=== PATIENT | male | born 1935 | race Caucasian/White ===

== ENCOUNTER → 2023-11-30 10:48 | Outpatient (REF) | payer MEDICARE, BC, SELFPAY ==
[2023-11-30 11:09] LABS: % Basophils 0.5 % (0-2); % Eosinophils 1.4 % (0-6); % Immature Granulocytes 0.3 % (0-0.5); % Lymphocytes 25.1 % (20.5-51.1); % Monocytes 8.4 % (1.7-9.3); % Neutrophils 64.3 % (42.2-75.2); Absolute Eosinophils 0.1 10^3/uL (0-0.7); Absolute Lymphocytes 1.6 10^3/uL (1.2-3.4); Absolute Monocytes 0.5 10^3/uL (0.1-0.6); Absolute Neutrophils 4.1 10^3/uL (1.4-6.5); Hematocrit 32.8 % (39.0-52.0); Mean Corp Hgb Conc. 33.5 g/dL (33.0-37.0); Mean Corpuscular Hgb 30.7 pg (27.0-31.0); Mean Corpuscular Volume 91.6 fL (80.0-94.0); Mean Platelet Volume 8.5 fL (7.4-10.4); Nucleated Red Blood Cells % 0 % (-); Platelet Count 252 10^3/uL (130-400); Red Blood Cell Count 3.58 10^6/uL (4.70-6.10); Red Cell Dist. Width 14.7 % (11.5-14.5); White Blood Cell Count 6.3 10^3/uL (4.8-10.8)
== END ==
LOC: OLABPV 10:48
PROVIDERS: ATTENDING PHYSICIAN Internal Medicine
DX: E78.2 Mixed hyperlipidemia (principal); Z79.899 Other long term (current) drug therapy
CPT/HCPCS: 36415; 85025

== ENCOUNTER → 2023-12-30 11:37 | Outpatient (REF) | payer MEDICARE, BC, SELFPAY ==
[2023-12-30 12:36] LABS: % Basophils 0.3 % (0-2); % Eosinophils 1.5 % (0-6); % Immature Granulocytes 0.2 % (0-0.5); % Monocytes 7.7 % (1.7-9.3); % Neutrophils 70.3 % (42.2-75.2); Absolute Eosinophils 0.1 10^3/uL (0-0.7); Absolute Lymphocytes 1.2 10^3/uL (1.2-3.4); Absolute Monocytes 0.5 10^3/uL (0.1-0.6); Absolute Neutrophils 4.3 10^3/uL (1.4-6.5); Hematocrit 31.4 % (39.0-52.0); Hemoglobin 10.6 g/dL (13.0-18.0); Mean Corp Hgb Conc. 33.8 g/dL (33.0-37.0); Mean Corpuscular Hgb 31.2 pg (27.0-31.0); Mean Corpuscular Volume 92.4 fL (80.0-94.0); Mean Platelet Volume 8.8 fL (7.4-10.4); Nucleated Red Blood Cells % 0 % (-); Platelet Count 239 10^3/uL (130-400); Red Cell Dist. Width 13.8 % (11.5-14.5); White Blood Cell Count 6.1 10^3/uL (4.8-10.8)
[2023-12-30 12:58] LABS: ALT (SGPT) 21 U/L (0-50); AST (SGOT) 31 U/L (17-59); Albumin 3.6 g/dl (3.5-5.0); Alkaline Phosphatase 74 U/L (38-126); Blood Urea Nitrogen 20 mg/dl (9-20); Calcium 8.9 mg/dl (8.4-10.2); Carbon Dioxide 27 mmol/L (22-30); Chloride 102 mmol/L (98-107); Glucose 101 mg/dl (70-99); Potassium 3.5 mmol/L (3.5-5.1); Sodium 133 mmol/L (135-145); Total Bilirubin 0.7 mg/dl (0.2-1.3); Total CK 90 U/L (55-170); Total Protein 6.3 g/dl (6.3-8.2); eGFR > 60.00
[2023-12-30 13:21] LABS: TSH Reflex To Free T4 2.44 uIU/ml (0.47-4.68)
[2023-12-30 13:39] LABS: CKMB 2.3 ng/ml (0.0-2.4)
[2023-12-30 13:50] LABS: Erythrocyte Sed Rate 44 mm/hour (0-20)
[2024-01-02 16:17] LABS: Lyme Antibody Screen, EIA Negative (Negative); Rheumatoid Agglutinin Less Than 10 IU (<10 IU)
== END ==
LOC: OLABPV 11:37
PROVIDERS: ATTENDING PHYSICIAN Internal Medicine
DX: M79.10 Myalgia, unspecified site (principal); R25.2 Cramp and spasm; E55.9 Vitamin D deficiency, unspecified
CPT/HCPCS: 36415; 80053; 82550; 82553; 84443; 85025; 85652; 86430; 86618

== ENCOUNTER → 2024-01-05 10:06 | Outpatient (REF) | payer MEDICARE, BC, SELFPAY ==
--- NOTE | 2024-01-05 11:38 | CARDSERVLU ---
Echocardiogram with Lumason completed after protocol screening completed. Allergies verified.
Patent IV site: _Left forearm 22 G PC____
IV site flushed with 0.9% NaCl pre and post administration.
Diluted bolus method utilized to enhance visualization of ventricular bradley.
Total volume given: ___3_ mL
Patient tolerated all procedures well without complications.
Heplock D/C ed at 1128, site clear, no redness, no edema. Pressure held for few minutes as pt on Eliquis, no bleeding. 2x2 applied and taped. Pt offers no complaints.
== END ==
LOC: RCS 10:06
PROVIDERS: ATTENDING PHYSICIAN Internal Medicine Cardiovascular Disease; FAMILY PHYSICIAN Internal Medicine
DX: I48.21 Permanent atrial fibrillation (principal); M79.10 Myalgia, unspecified site; R25.2 Cramp and spasm; E55.9 Vitamin D deficiency, unspecified
CPT/HCPCS: 83735; 93306; Q9950

== ENCOUNTER → 2024-01-18 11:44 | Outpatient (REF) | payer MEDICARE, BC, SELFPAY ==
[2024-01-18 12:57] LABS: % Basophils 0.5 % (0-2); % Eosinophils 2.1 % (0-6); % Immature Granulocytes 0.5 % (0-0.5); % Lymphocytes 21.8 % (20.5-51.1); % Monocytes 9.3 % (1.7-9.3); % Neutrophils 65.8 % (42.2-75.2); Absolute Eosinophils 0.2 10^3/uL (0-0.7); Absolute Lymphocytes 1.9 10^3/uL (1.2-3.4); Absolute Monocytes 0.8 10^3/uL (0.1-0.6); Absolute Neutrophils 5.8 10^3/uL (1.4-6.5); Hematocrit 33.5 % (39.0-52.0); Hemoglobin 11.1 g/dL (13.0-18.0); Mean Corp Hgb Conc. 33.1 g/dL (33.0-37.0); Mean Corpuscular Hgb 30.7 pg (27.0-31.0); Mean Corpuscular Volume 92.5 fL (80.0-94.0); Mean Platelet Volume 8.6 fL (7.4-10.4); Nucleated Red Blood Cells % 0 % (-); Platelet Count 318 10^3/uL (130-400); Red Blood Cell Count 3.62 10^6/uL (4.70-6.10); Red Cell Dist. Width 14.6 % (11.5-14.5); White Blood Cell Count 8.8 10^3/uL (4.8-10.8)
[2024-01-18 13:28] LABS: Erythrocyte Sed Rate 38 mm/hour (0-20)
[2024-01-18 13:45] LABS: ALT (SGPT) 30 U/L (0-50); AST (SGOT) 30 U/L (17-59); Albumin 3.7 g/dl (3.5-5.0); Alkaline Phosphatase 79 U/L (38-126); Blood Urea Nitrogen 29 mg/dl (9-20); Calcium 9.3 mg/dl (8.4-10.2); Carbon Dioxide 27 mmol/L (22-30); Chloride 98 mmol/L (98-107); Glucose 99 mg/dl (70-99); Potassium 4.2 mmol/L (3.5-5.1); Sodium 136 mmol/L (135-145); Total Protein 6.4 g/dl (6.3-8.2); eGFR > 60.00
[2024-01-20 11:13] LABS: CRP, Highly Sensitive 11.56 mg/L
[2024-01-21 03:29] LABS: ANA, IgG Reflex to HEp-2 Detected (None Detected)
[2024-01-23 08:16] LABS: ANA, HEp-2, IgG <1:80 (<1:80)
== END ==
LOC: OLABPV 11:44
PROVIDERS: ATTENDING PHYSICIAN Internal Medicine
DX: D64.9 Anemia, unspecified (principal); R25.2 Cramp and spasm; R70.0 Elevated erythrocyte sedimentation rate; R79.89 Other specified abnormal findings of blood chemistry; I25.10 Atherosclerotic heart disease of native coronary artery without angina pectoris
CPT/HCPCS: 36415; 80053; 85025; 85652; 86038; 86039; 86140; 86141

== ENCOUNTER → 2024-01-24 12:28 | Outpatient (REF) | payer MEDICARE, BC, SELFPAY ==
[2024-01-24 13:19] LABS: % Basophils 0.7 % (0-2); % Eosinophils 2.6 % (0-6); % Immature Granulocytes 0.2 % (0-0.5); % Lymphocytes 25.9 % (20.5-51.1); % Monocytes 9.5 % (1.7-9.3); % Neutrophils 61.1 % (42.2-75.2); Absolute Eosinophils 0.2 10^3/uL (0-0.7); Absolute Lymphocytes 1.6 10^3/uL (1.2-3.4); Absolute Monocytes 0.6 10^3/uL (0.1-0.6); Absolute Neutrophils 3.7 10^3/uL (1.4-6.5); Hematocrit 32.3 % (39.0-52.0); Hemoglobin 10.5 g/dL (13.0-18.0); Mean Corp Hgb Conc. 32.5 g/dL (33.0-37.0); Mean Corpuscular Hgb 30.9 pg (27.0-31.0); Mean Platelet Volume 8.6 fL (7.4-10.4); Nucleated Red Blood Cells % 0 % (-); Platelet Count 246 10^3/uL (130-400); Red Cell Dist. Width 14.4 % (11.5-14.5); White Blood Cell Count 6.1 10^3/uL (4.8-10.8)
[2024-01-24 13:51] LABS: ALT (SGPT) 22 U/L (0-50); AST (SGOT) 31 U/L (17-59); Albumin 3.6 g/dl (3.5-5.0); Alkaline Phosphatase 84 U/L (38-126); Blood Urea Nitrogen 26 mg/dl (9-20); Carbon Dioxide 27 mmol/L (22-30); Chloride 102 mmol/L (98-107); Glucose 92 mg/dl (70-99); Potassium 4.5 mmol/L (3.5-5.1); Sodium 134 mmol/L (135-145); Total Bilirubin 0.6 mg/dl (0.2-1.3); Total Protein 6.3 g/dl (6.3-8.2); eGFR 58.17
[2024-01-24 15:38] LABS: CRP, Highly Sensitive 11.98 mg/L
[2024-01-26 22:02] LABS: ANA, IgG Reflex to HEp-2 Detected (None Detected)
[2024-01-27 23:38] LABS: ANA, HEp-2, IgG Detected (<1:80)
[2024-01-30 07:21] LABS: ANA Pattern Homogeneous
== END ==
LOC: OLABPV 12:28
PROVIDERS: ATTENDING PHYSICIAN Internal Medicine
DX: D64.9 Anemia, unspecified (principal); R25.2 Cramp and spasm; R70.0 Elevated erythrocyte sedimentation rate; J44.9 Chronic obstructive pulmonary disease, unspecified; M79.604 Pain in right leg; M79.605 Pain in left leg; I25.10 Atherosclerotic heart disease of native coronary artery without angina pectoris
CPT/HCPCS: 80053; 85025; 86038; 86039; 86140; 86141

== ENCOUNTER → 2024-02-13 16:28 | Outpatient (REF) | payer MEDICARE, BC, SELFPAY | LOC: RAD 16:28 | PROVIDERS: ATTENDING PHYSICIAN Physical Medicine & Rehabilitation; FAMILY PHYSICIAN Internal Medicine | DX: M54.16 Radiculopathy, lumbar region (principal) | CPT/HCPCS: 72131 ==

== ENCOUNTER → 2024-02-24 10:36 | Outpatient (REF) | payer MEDICARE, BC, SELFPAY | LOC: EMG 10:36 | PROVIDERS: ATTENDING PHYSICIAN Orthopaedic Surgery; FAMILY PHYSICIAN Internal Medicine | DX: R20.0 Anesthesia of skin (principal) | CPT/HCPCS: 95886; 95911 ==

== ENCOUNTER → 2024-03-14 10:08 | Outpatient (REF) | payer MEDICARE, BC, SELFPAY ==
[2024-03-14 14:22] LABS: % Basophils 0.5 % (0-2); % Eosinophils 2.4 % (0-6); % Immature Granulocytes 0.3 % (0-0.5); % Monocytes 11.8 % (1.7-9.3); Absolute Eosinophils 0.2 10^3/uL (0-0.7); Absolute Lymphocytes 2.1 10^3/uL (1.2-3.4); Absolute Monocytes 0.8 10^3/uL (0.1-0.6); Absolute Neutrophils 3.3 10^3/uL (1.4-6.5); Mean Corp Hgb Conc. 32.4 g/dL (33.0-37.0); Mean Corpuscular Volume 92.6 fL (80.0-94.0); Mean Platelet Volume 8.8 fL (7.4-10.4); Nucleated Red Blood Cells % 0 % (-); Platelet Count 247 10^3/uL (130-400); Red Blood Cell Count 3.67 10^6/uL (4.70-6.10); Red Cell Dist. Width 14.4 % (11.5-14.5); White Blood Cell Count 6.3 10^3/uL (4.8-10.8)
[2024-03-14 15:42] LABS: ALT (SGPT) 18 U/L (0-50); AST (SGOT) 29 U/L (17-59); Albumin 3.7 g/dl (3.5-5.0); Alkaline Phosphatase 84 U/L (38-126); Blood Urea Nitrogen 23 mg/dl (9-20); Calcium 9.1 mg/dl (8.4-10.2); Carbon Dioxide 29 mmol/L (22-30); Chloride 102 mmol/L (98-107); Creatine Phosphokinase 51 U/L (55-170); Glucose 89 mg/dl (70-99); Potassium 4.2 mmol/L (3.5-5.1); Sodium 139 mmol/L (135-145); Total Bilirubin 0.9 mg/dl (0.2-1.3); Total Protein 6.4 g/dl (6.3-8.2); eGFR > 60.00
[2024-03-14 16:14] LABS: PSA, Total - Diagnostic < 0.06 ng/ml (0.0-4.0); TSH Reflex To Free T4 2.43 uIU/ml (0.47-4.68)
== END ==
LOC: OLABPV 10:08
PROVIDERS: ATTENDING PHYSICIAN Internal Medicine
DX: M79.641 Pain in right hand (principal); M79.642 Pain in left hand; R89.9 Unspecified abnormal finding in specimens from other organs, systems and tissues; Z85.46 Personal history of malignant neoplasm of prostate; R39.11 Hesitancy of micturition; M62.81 Muscle weakness (generalized); R63.4 Abnormal weight loss
CPT/HCPCS: 36415; 80053; 82550; 84153; 84443; 85025

== ENCOUNTER → 2024-03-16 18:20 | Outpatient (REF) | payer MEDICARE, BC, SELFPAY ==
[2024-03-16 18:45] LABS: Urine Albumin Negative (Neg - Trace); Urine Bilirubin Negative (Negative); Urine Character Clear (Clear); Urine Color Yellow; Urine Glucose Negative (Negative); Urine Ketone Negative (Negative); Urine Leukocyte Negative (Negative); Urine Nitrite Negative (Negative); Urine Occult Blood Negative (Negative); Urine Specific Gravity 1.015 (<1.030); Urine Urobilinogen Negative (Neg - 1+)
== END ==
LOC: OLABPV 18:20
PROVIDERS: ATTENDING PHYSICIAN Internal Medicine
DX: M79.641 Pain in right hand (principal); M79.642 Pain in left hand; R89.9 Unspecified abnormal finding in specimens from other organs, systems and tissues; R63.4 Abnormal weight loss; D64.9 Anemia, unspecified; Z85.46 Personal history of malignant neoplasm of prostate; R39.11 Hesitancy of micturition
CPT/HCPCS: 81003

== ENCOUNTER → 2024-04-27 11:15 | Outpatient (REF) | payer MEDICARE, BC, SELFPAY ==
[2024-04-27 12:52] LABS: Erythrocyte Sed Rate 16 mm/hour (0-20)
[2024-04-29 00:49] LABS: CCP Antibody IgG/IgA 9 Units (0-19)
== END ==
LOC: OLABPV 11:15
PROVIDERS: ATTENDING PHYSICIAN Physician Assistant
DX: M19.90 Unspecified osteoarthritis, unspecified site (principal); M25.641 Stiffness of right hand, not elsewhere classified; M25.642 Stiffness of left hand, not elsewhere classified
CPT/HCPCS: 85652; 86140; 86200; 86430

== ENCOUNTER 2024-04-30 21:26 | Inpatient (IN) | payer MEDICARE, BC, SELFPAY ==
[2024-04-30] VITALS (7 sets, daily range): BP systolic 101–137; BP diastolic 43–85; BMI 23.9
[2024-04-30 18:39] LABS: % Basophils 0.2 % (0-2); % Immature Granulocytes 0.2 % (0-0.5); % Lymphocytes 11.3 % (20.5-51.1); % Monocytes 5.2 % (1.7-9.3); % Neutrophils 83.1 % (42.2-75.2); Absolute Lymphocytes 0.5 10^3/uL (1.2-3.4); Absolute Monocytes 0.3 10^3/uL (0.1-0.6); Hematocrit 38.6 % (39.0-52.0); Mean Corp Hgb Conc. 33.7 g/dL (33.0-37.0); Mean Corpuscular Hgb 30.9 pg (27.0-31.0); Mean Corpuscular Volume 91.7 fL (80.0-94.0); Mean Platelet Volume 8.6 fL (7.4-10.4); Nucleated Red Blood Cells % 0 % (-); Platelet Count 209 10^3/uL (130-400); Red Blood Cell Count 4.21 10^6/uL (4.70-6.10); Red Cell Dist. Width 15.1 % (11.5-14.5); White Blood Cell Count 4.8 10^3/uL (4.8-10.8)
--- NOTE | 2024-04-30 19:00 | ED.GENMED ---
History of Present Illness
General
Chief Complaint: Weakness
Source: patient and family (Daughters)
Exam Limitations: none
Time Seen by Provider: 04/30/24 18:34
History of Present Illness
History of Present Illness:
This is a 89 year old male that is brought in by ambulance with c/o weakness. Daughter states that she got a call from his Girlfriend about 5pm. States that she was told that the patient was unable to get OOB. States that she called EMS and the
patient was refusing to go. Daughter got on the phone and that patient has garbled speech and she talked him in to going. States that he was fine yesterday when she talked with him. States that he did have diarrhea last night. Denies any fever,
chills, chest pain, SOB, abd pain, nausea, vomiting, headache, dizziness, urinary burning.
Past History
Past History
ED Past Medical History: Arrthythmia (AFib), Asthma, CAD, Cancer (prostate, Skin), CHF, COPD, GERD, HTN, Hypercholesterolemia and Other (Sciatic , back pain, Vertigo, PNA, AAA that they are watching, PAD, Hiatal hernia)
ED Past Surgical History: Cardiac (pacemaker), Orthopedic (Right shoulder surgery) and Other (hernia, Cataracts, )
Patient has exhibited threatening behavior?: No
PSI?: No
Social History
Tobacco: Former smoker
Alcohol: Daily (Whisky, [place] and Martini 1-2 )
Personal:
Living: assisted living ([facility])
Review of Systems
Review of Systems
All Other Systems: ROS reviewed and negative except as documented in HPI and ROS
Constitutional: Reports no symptoms; Denies fever or chills
EENT: Reports no symptoms
Respiratory: Reports no symptoms; Denies cough or trouble breathing
Cardiac: Reports no symptoms; Denies chest pain
ABD/GI: Reports diarrhea (last night); Denies abdominal pain, nausea or vomiting
: Reports no symptoms; Denies dysuria, frequency or urgency
Musculoskeletal: Reports no symptoms
Neurological: Reports weakness
Psychiatric: Reports no symptoms
Phy Exam
General Physical Exam
General Presentation: no apparent distress
General age: appears stated age
General Skin: warm and dry
General Habitus: elderly
General Mental: alert
General Hydration: dry mucous membranes
ENT Exam
ENT Exam: TM's normal, pharynx normal and neck supple
Eye Exam
Eye Exam: PERRL and EOMI
Cardiovascular Exam
Cardiovascular Exam: pacemaker
Pulmonary Exam
Pulmonary Exam: no respiratory distress, chest non tender, no rhonchi and other (Fine rales at bases, Occasional cough noted with occasional exp wheeze noted)
Gastrointestinal Exam
Gastrointestinal Exam: normal bowel sounds, non tender, soft, no organomegaly, no pulsatile mass and non distended
NIH Stroke Score
Level of Consciousness: 0 - Alert
LOC questions: 0-Answers both correctly
LOC Commands: 0-Performs both correctly
Best Gaze: 0-Normal
Facial palsy: 0=Normal, symmetrical
Motor - Right Arm: 0=No drift 10 seconds
Motor - Left Arm: 0=No drift 10 seconds
Motor - Right Le-No drift 5 seconds (Unable to hold leg up)
Motor - Left Le-No drift 5 seconds (Unable to hold leg up)
Limb Ataxia: 0-Absent
Sensation: 0-Normal
Best Language: 0-No aphasia
Dysarthria: 0-Normal
Extinction and Inattention: 0-No abnormality
Musculoskeletal Exam
Musculoskeletal Exam: edema (Slight ankle edema)
Skin Exam
Skin Exam: normal color, warm/dry, no rash and no petechia
Psychiatric Exam
Psychiatric Exam: normal mood/affect
Course
Orders/Labs/Results
Orders:
Orders
04/30/24 18:31
Complete Blood Count/With Diff Urgent
Comprehensive Metabolic Panel Urgent
Lipase Urgent
04/30/24 18:51
CT Head W/o Iv Contrast Urgent
Comment:
Reason For Exam: Seech garbled according to daughter
0.9% Sodium Chloride 500 ml [Nss] 500 ml IV BOLUS
CR Chest - 2 Views Urgent
Comment:
Reason For Exam: fever. cough
04/30/24 18:52
Acetaminophen 1000MG/100Ml [Ofirmev] 1,000 mg in 100 ml IV ONCE
Acetaminophen IV Indication:: ED Narcotic Naive Pt-ONCE
04/30/24 18:58
COVID-19 Antigen Urgent
Source: Nasal Swab
Lactic Acid Urgent
Influenza A+B Rapid Molecular Urgent
RAVINDRA Source: Nasal Swab
Specimen Description:
04/30/24 19:24
Urinalysis Reflex To Culture Urgent
Date Specimen was Collected: 04/30/24
Time Specimen was Collected: 19:22
Urine Microscopic Reflex Cult Urgent
Urine Culture Urgent
RAVINDRA Source: U
Specimen Description:
Date Specimen was Collected: 04/30/24
Time Specimen was Collected: 19:22
04/30/24 19:48
Troponin I Urgent
04/30/24 20:41
Piperacillin/Tazo 3.375 Gram [Zosyn] 3.375 gram in 50 ml IV NOW
04/30/24 21:05
Admit/Transfer Patient As Directed
Co-Sign Provider:
Level of Care: Inpatient admission
Assign to:: Telemetry
Physician / Group: francesca
Diagnosis: sepsis pneumonia
Reason for Telemetry: Arrhythmia
Date to Stop Telemetry: 05/03/24
Time to Stop Telemetry: 11:00
Reason for Hospitalization: sepsis pnuemonia
Expected length of stay greater than two midnights?: Yes
ELOS- Estimated Length of Stay in days: 2
I certify the patient meets the requirements for IP care: Yes
04/30/24 21:06
Code Status As Directed
Resuscitation Status: Full Code
04/30/24 21:08
Legionella Urinary Antigen Routine
RAVINDRA Source: Urine
Specimen Description:
Sputum Culture [Respiratory Culture/Gram Stain] Urgent
RAVINRDA Source: Sputum
Specimen Description:
Strep pneumoniae Antigen Routine
RAVINDRA Source: Urine
Specimen Description:
04/30/24 21:09
EKG [Electrocardiogram (*1)] Routine
Reason for Study: Fatigue / Weakness
MRSA Screen Routine
RAVINDRA Source: Nose
Specimen Description:
04/30/24 22:50
Troponin I Urgent
05/03/24 11:00
DC Protocol for Telemetry ONCE
Abnormal Lab Results
04/30/24 04/30/24 04/30/24
18:31 19:24 19:48
RBC 4.21 L 10^6/uL
(4.70-6.10)
Hct 38.6 L %
(39.0-52.0)
RDW 15.1 H %
(11.5-14.5)
Absolute Lymphs (auto) 0.5 L 10^3/uL
(1.2-3.4)
Neutrophils % 83.1 H %
(42.2-75.2)
Lymphocytes % 11.3 L %
(20.5-51.1)
BUN 39 H mg/dl
(9-20)
AST 79 H U/L
(17-59)
Troponin I 0.083 H* ng/ml
Ur Occult Blood Reflex 2+ A
(Negative)
Leukocyte Esterase Rfl Trace A
(Negative)
Urine RBC 3-6 A /HPF
(0-2)
Urine Bacteria (Reflex) Moderate A
(Negative)
04/30/24 18:31
04/30/24 18:31
Dehydration. AST elevated. Lipase normal evans 42, COVID and Influenza negative, Urine negative for infection. Lactic acid normal at 1.3, Troponin elevated at 0.083
Vital Signs
Initial and Last Documented VS:
Initial Vital Signs
Temp Pulse Resp BP Pulse Ox
99.5 F 94 18 129/85 96
04/30/24 18:25 04/30/24 18:25 04/30/24 18:25 04/30/24 18:25 04/30/24 18:25
Last Documented Vital Signs
Temp Pulse Resp BP Pulse Ox
99.1 F 66 26 111/57 96
04/30/24 20:54 04/30/24 20:45 04/30/24 20:45 04/30/24 20:04 04/30/24 18:25
MDM/Problems Addressed
Differential Diagnosis Includes:
COVID, UTI, PNA
MDM/Problems Addressed:
This is a 89 year old male that comes in by ambulance with c/o weakness. Daughter states that he was unable to get OOB and that she felt his speech was garbbled.
Will get labs, CT head, IV fluids and tylenol for fever. Urine and chest x-ray.
Chronic conditions affecting care:
PNA,
Acute Exacerbation and/or Progression of Chronic Illness:
NA
*Radiology
Radiology exam reviewed: radiology read reviewed (CT head-No evidence of acute intracranial abnormality. IF there are persistent clinical symptoms and further imaging evaluation is desired, consider MRI. )
*Pulse Oximetry
Patient hypoxic: no
*EKG
Interpreted by ED Provider?: Yes
Heart Rate: 81
Rate: normal
Rhythm: ventricular paced
*Mirror Specialist Interpretation
Rate: normal
Heart Rate: 87
Rhythm: ventricular paced
*Critical Care Note
Total Time (30-74mins, 75-104mins- exclusive of procedures): Not Applicable
ED Attending Note
-
Portions of this chart may have been created with voice recognition software.� Occasional wrong word or��sound alike� substitutions may have occurred due to the inherent limitations of voice recognition software.
Discharge Plan
Departure
Patient Disposition: Admit
Date of Disposition: 04/30/24
Time of Disposition: 20:43
Admit to: Telemetry
Presentation/result/management discussed w/ accepting MD/DO: Hospitalist
Patient with high blood pressure during this ER visit?: No
Condition: Good
Covid-19: Negative COVID-19
Discharge Problem:
Weakness, Pneumonia of both lower lobes, Elevated troponin
Prescriptions:
No Action
tamsulosin 0.4 MG capsule
0.4 mg PO HS
furosemide 40 MG tablet
60 mg PO BID
atorvastatin 20 MG tablet
20 mg PO HS
potassium chloride [Klor-Con M20] 20 MEQ tablet,ER particles/crystals
20 meq PO DAILY
albuterol sulfate 1 PUFF HFA aerosol inhaler
2 puff inhalation QID PRN (Reason: Lung/breathing issues)
melatonin 5 MG tablet
5 mg PO HS
pantoprazole 40 MG tablet,delayed release (DR/EC)
40 mg PO DAILY Qty: 30 0RF
Eliquis 5 MG tablet
5 mg PO BID Qty: 0 0RF
polyethylene glycol 3350 [Miralax] 17 gram Powder In Packet
17 g PO DAILY@1600
psyllium Packet
1 packet PO DAILY
guaifenesin [Mucus Relief ER] 600 MG tablet extended release 12hr
1,200 mg PO BID
cholecalciferol (vitamin D3) [Vitamin D3] 25 mcg (1,000 unit) Tablet,Chewable
50 mcg PO DAILY
ondansetron 4 mg Tablet,Disintegrating
4 mg PO PRN PRN (Reason: nausea, vomiting)
diltiazem HCl 120 mg Capsule,Extended Release 24hr
120 mg PO DAILY
Patient Comments:
pt reports being on this daily, as per his own pt home list,last dose was last at home before his fall. Jermain Flynn has not had him on it
budesonide 0.5 mg/2 mL Suspension For Nebulization
0.5 mg INHALATION BID
ipratropium-albuterol [DuoNeb] 0.5 mg-3 mg(2.5 mg base)/3 mL Solution For Nebulization
3 ml INHALATION TID
Referrals:
Flakita Pittman NP [Family Provider] -
Interventions
Interventions:
*Risk Screen - Suicide Last Done: 04/30/24 18:25
*General Assessment Last Done: 04/30/24 18:25
*Neglect/Abuse Screening Last Done: 04/30/24 18:25
ED- Cardiac Assessment Last Done: 04/30/24 18:37
ED- Neurological Assessment Last Done: 04/30/24 18:37
ED- Pulmonary Assessment Last Done: 04/30/24 18:37
Discharge Date and Time
Print Language: AUSTRIAN
[2024-04-30] MEDS: NSS 500 IV (19:01)
[2024-04-30] MEDS: OFIRMEV 100 IV (19:05)
[2024-04-30 19:08] LABS: ALT (SGPT) 40 U/L (0-50); AST (SGOT) 79 U/L (17-59); Albumin 4.2 g/dl (3.5-5.0); Alkaline Phosphatase 70 U/L (38-126); Blood Urea Nitrogen 39 mg/dl (9-20); Calcium 9.6 mg/dl (8.4-10.2); Carbon Dioxide 28 mmol/L (22-30); Chloride 103 mmol/L (98-107); Estimated Creatinine Clearance 41 ml/min; Glucose 96 mg/dl (70-99); Lipase 42 U/L (23-300); Potassium 3.8 mmol/L (3.5-5.1); Sodium 138 mmol/L (135-145); Total Bilirubin 1.2 mg/dl (0.2-1.3); eGFR > 60.00
[2024-04-30 19:17] LABS: Lactic Acid 1.3 mmol/L (0.7-2.0)
[2024-04-30 19:18] LABS: Total Protein 6.8 g/dl (6.3-8.2)
[2024-04-30 19:20] LABS: COVID-19 Antigen Negative (Negative)
[2024-04-30 19:29] LABS: Urine Albumin Trace (Neg - Trace); Urine Bilirubin Negative (Negative); Urine Character Clear (Clear); Urine Color Yellow; Urine Glucose Negative (Negative); Urine Ketone Negative (Negative); Urine Leukocyte Trace (Negative); Urine Nitrite Negative (Negative); Urine Occult Blood 2+ (Negative); Urine Specific Gravity 1.015 (<1.030); Urine Urobilinogen Negative (Neg - 1+)
[2024-04-30 19:53] LABS: Urine Bacteria Moderate (Negative); Urine White Cell 0-2 /HPF (0-5)
[2024-04-30 20:24] LABS: Troponin I 0.083 ng/ml
[2024-04-30] MEDS: ZOSYN 50 IV (21:05)
--- NOTE | 2024-04-30 21:10 | HPS.HSE ---
Family Physician
-
Family Physician: Flakita Pittman
Chief Complaint
-
weakness
History of Present Illness
89-year-old male with past medical history of asthma/COPD on 2 L baseline, alpha-1 antitrypsin PIMS phenotype, chronic Pseudomonas bronchiectasis, chronic atrial fibrillation, sick sinus syndrome status post pacemaker, coronary artery disease
history of LAD stent in 2012, HFpEF, peripheral vascular disease bilateral distal small vessel disease, prostate cancer, hypertension, spondylosis, hyperlipidemia, presenting with weakness. Daughter states that she got a call from his girlfriend at
around 5 PM. States that she was told that the patient was unable to get out of bed. She called EMS and patient was refusing to go. Daughter spoke on the phone with him and patient had garbled speech and convince him to go to the hospital.
Patient does complain of productive cough. His shortness of breath is slightly worse than usual. He did have severe watery diarrhea and an episode of vomiting last night. Denies fevers or chills, chest pain, shortness of breath, abdominal pain,
headache, dizziness or urinary symptoms.
Medical History
Past Medical History
Past Medical History: Reports Other (asthma/COPD on 2 L baseline, alpha-1 antitrypsin PIMS phenotype, chronic Pseudomonas bronchiectasis, chronic atrial fibrillation, sick sinus syndrome status post pacemaker, coronary artery disease history of LAD
stent in 2012, HFpEF, peripheral vascular disease)
Past Surgical History: Reports Other (Cardiac (pacemaker), Orthopedic (Right shoulder surgery) and Other (hernia, Cataracts, ))
Social History
Tobacco: Former Smoker
Alcohol: Daily (2 drinks daily )
Drug: None
Family History
Family History: Not pertinent
Allergies / Home Medications
Allergies reflects when Allergies were last updated in [email or web address].
Home Medications with original date entered in [email or web address]
Allergy/Medication List:
Allergies
Allergy/AdvReac Type Severity Reaction Status Date / Time
levofloxacin [From Levaquin] Allergy torn Verified 07/29/24 18:25
achilles
tendon
Home Medications
tamsulosin 0.4 mg capsule 0.4 mg PO HS Urinary issue 10/12/17
albuterol sulfate 90 mcg/actuation aerosol inhaler 2 puff inhalation QID PRN Lung/breathing issues 07/18/19
atorvastatin 20 mg tablet 20 mg PO HS High cholesterol 07/18/19
furosemide 40 mg tablet 60 mg PO BID Fluid retention/Swelling 07/18/19
melatonin 5 mg tablet 5 mg PO HS Sleep 07/18/19
potassium chloride 20 mEq tablet,extended release(part/cryst) (Klor-Con M) 20 meq PO DAILY Supplement 07/18/19
pantoprazole 40 mg tablet,delayed release 40 mg PO DAILY #30 tabs 10/11/19
apixaban 5 mg tablet (Eliquis) 5 mg PO BID Blood clot prevention/tx ##0 04/02/20
guaifenesin 600 mg tablet, extended release 12 hr (Mucus Relief ER) 1,200 mg PO BID Cough 11/17/22
polyethylene glycol 3350 17 gram oral powder packet (Miralax) 17 g PO DAILY@1600 Constipation 11/17/22
psyllium 1 packet PO DAILY Constipation 11/17/22
cholecalciferol (vitamin D3) 25 mcg (1,000 unit) chewable tablet (Vitamin D3) 50 mcg PO DAILY 11/29/22
ondansetron 4 mg disintegrating tablet 4 mg PO PRN PRN nausea, vomiting 11/29/22
diltiazem HCl 120 mg capsule,extended release 24 hr 120 mg PO DAILY Heart disease/condition 12/01/22
budesonide 0.5 mg/2 mL suspension for nebulization 0.5 mg inhalation BID 01/27/23
ipratropium 0.5 mg-albuterol 3 mg (2.5 mg base)/3 mL nebulization soln 3 ml inhalation TID 04/30/24
Review of Systems
-
History Source: Patient
A 12 point ROS was completed and negative except as noted: Yes
Constitutional: Reports No Symptoms
EENT: Reports No Symptoms
Respiratory: Reports See HPI
Cardiac: Reports No Symptoms
Abdomen/GI: Reports See HPI
: Reports No Symptoms
Musculoskeletal: Reports No Symptoms
Skin: Reports No Symptoms
Neurological: Reports No Symptoms
Endocrine: Reports No Symptoms
Hematologic/Lymphatic: Reports No Symptoms
Psych: Reports No Symptoms
Physical Exam
Vital Signs
Vital Signs
Temp Pulse Resp BP Pulse Ox
99.1 F 66 26 111/57 96
04/30/24 20:54 04/30/24 20:45 04/30/24 20:45 04/30/24 20:04 04/30/24 18:25
Physical Exam
General: Well Developed, Well Nourished and No Apparent Distress
HEENT: NormoCephalic, Moist mucous membranes and Atraumatic
Respiratory: Clear
Cardiac: S1/S2 and Regular Rhythm; No Murmur or Rub
GI: Soft, Non Tender, Non Distended and Normal Bowel Sounds; No Organomegaly
Rectal: Deferred by Provider
Musculoskeletal: No Clubbing, No Cyanosis and No Edema
Skin: No Rash
Neuro: Nonfocal/grossly intact
Laboratory Results
-
04/30/24 18:31
04/30/24 18:31
Laboratory Results
Lactic Acid 1.3 mmol/L (0.7-2.0) 04/30/24 18:58
Total Bilirubin 1.2 mg/dl (0.2-1.3) 04/30/24 18:31
AST 79 U/L (17-59) H 04/30/24 18:31
ALT 40 U/L (0-50) 04/30/24 18:31
Alkaline Phosphatase 70 U/L (38-126) 04/30/24 18:31
Troponin I 0.083 ng/ml H* 04/30/24 19:48
Lipase 42 U/L (23-300) 04/30/24 18:31
Data Reviewed
-
Lab Data: Labs Reviewed by me
Old Records: Reviewed
Impression/Plan
-
IMPRESSION:
PLAN:
# Sepsis (fever, tachypnea) secondary to likely bilateral lower lobe pneumonia
-Chest x-ray appears to show possible bilateral infiltrates, report pending
-CT head shows no acute abnormality
-COVID-negative
-Check sputum culture, strep antigen, Legionella, MRSA
-IV fluids
-Hold Lasix
-Zosyn
# Diarrhea/vomiting since yesterday possible gastroenteritis
-Check stool studies, C. difficile if persistent
-some tenderness of right abdomen
# Nonischemic myocardial injury
-Troponin 0.083
-Continue to trend
-Check EKG
Chronic Pseudomonas bronchiectasis
Asthma/COPD on 2 L baseline
-Continue albuterol, budesonide,
History of alpha-1 antitrypsin deficiency PIMS phenotype
Chronic atrial fibrillation
-Continue diltiazem
-Continue Eliquis
Sick sinus syndrome status post pacemaker
Coronary artery disease status post LAD stent in 2011
-Continue statin
Chronic HFpEF
-Hold Lasix
Peripheral vascular disease with bilateral distal small vessel disease
Prostate cancer
-Continue tamsulosin
Essential hypertension
Spondylosis
Hyperlipidemia
Full code
DVT prophylaxis�Eliquis
Cardiac diet
[2024-04-30 23:39] LABS: Troponin I 0.111 ng/ml
[2024-05-01] VITALS (14 sets, daily range): BP systolic 100–138; BP diastolic 42–60; BMI 23.9
[2024-05-01 01:59] LABS: Troponin I 0.104 ng/ml
[2024-05-01] MEDS: NSS 1000 IV ×3 (02:01→21:11)
[2024-05-01] MEDS: ZOSYN 50 IV ×4 (02:01→21:07)
[2024-05-01] MEDS: LIPITOR 20 MG PO ×2 (02:02→21:11)
[2024-05-01] MEDS: FLOMAX 0.4 MG PO ×2 (02:02→21:08)
[2024-05-01] MEDS: MELATONIN PO (02:03)
[2024-05-01 06:38] LABS: % Basophils 0.2 % (0-2); % Eosinophils 0.9 % (0-6); % Immature Granulocytes 0.5 % (0-0.5); % Lymphocytes 15.2 % (20.5-51.1); % Monocytes 9.8 % (1.7-9.3); % Neutrophils 73.4 % (42.2-75.2); Absolute Lymphocytes 0.7 10^3/uL (1.2-3.4); Absolute Monocytes 0.4 10^3/uL (0.1-0.6); Absolute Neutrophils 3.2 10^3/uL (1.4-6.5); Hematocrit 32.7 % (39.0-52.0); Hemoglobin 11.2 g/dL (13.0-18.0); Mean Corp Hgb Conc. 34.3 g/dL (33.0-37.0); Mean Corpuscular Hgb 31.5 pg (27.0-31.0); Mean Corpuscular Volume 92.1 fL (80.0-94.0); Mean Platelet Volume 8.8 fL (7.4-10.4); Nucleated Red Blood Cells % 0 % (-); Platelet Count 176 10^3/uL (130-400); Red Blood Cell Count 3.55 10^6/uL (4.70-6.10); White Blood Cell Count 4.3 10^3/uL (4.8-10.8)
[2024-05-01 06:51] LABS: ALT (SGPT) 46 U/L (0-50); AST (SGOT) 83 U/L (17-59); Albumin 3.1 g/dl (3.5-5.0); Alkaline Phosphatase 60 U/L (38-126); Blood Urea Nitrogen 31 mg/dl (9-20); Calcium 8.4 mg/dl (8.4-10.2); Carbon Dioxide 25 mmol/L (22-30); Chloride 107 mmol/L (98-107); Estimated Creatinine Clearance 50 ml/min; Glucose 92 mg/dl (70-99); Potassium 3.1 mmol/L (3.5-5.1); Sodium 137 mmol/L (135-145); Total Bilirubin 0.9 mg/dl (0.2-1.3); Total Protein 5.4 g/dl (6.3-8.2); Troponin I 0.098 ng/ml; eGFR > 60.00
[2024-05-01] MEDS: DUONEB 3 ML INH ×4 (08:41→19:43)
[2024-05-01] MEDS: PULMICORT 0.5 MG INH ×2 (08:48→19:44)
--- NOTE | 2024-05-01 09:16 | W.PN.HOSP.TC ---
Today's Communication/Plan
-
IV antibiotics. Swallow eval. PT OT
Assessment / Plan
Assessment / Plan
Physical exam:
General: Well Developed, Well Nourished and No Apparent Distress
HEENT: Normocephalic, Atraumatic and Moist Mucous Membranes
Respiratory: Clear to Auscultation; Negative Wheezes, Rales or Rhonchi
Cardiac: Regular Rhythm and S1/S2
GI: Soft, Nontender and Nondistended
Musculoskeletal: No Clubbing, No Cyanosis and No Edema
Neuro: Awake, Alert and Oriented
Psych: Calm
A/P:
# Sepsis (fever, tachypnea) secondary to likely bilateral lower lobe pneumonia
-Chest x-ray appears to show bilateral infiltrates
-CT head shows no acute abnormality
-COVID-negative
-Check sputum culture, strep antigen, Legionella, MRSA
-IV fluids
-Hold Lasix
-Zosyn and add doxycycline today
-Speech therapy for swallow eval today
-PT OT eval
# Diarrhea/vomiting since yesterday possible gastroenteritis
-Check stool studies, C. difficile if persistent. Improving today
-No tenderness of the abdomen
# Nonischemic myocardial injury
-Troponin 0.083
-No chest pain
-Continue to trend
-Check EKG
Chronic Pseudomonas bronchiectasis
Asthma/COPD on 2 L baseline
-Continue albuterol, budesonide,
History of alpha-1 antitrypsin deficiency PIMS phenotype
Chronic atrial fibrillation
-Continue diltiazem
-Continue Eliquis
Sick sinus syndrome status post pacemaker
Coronary artery disease status post LAD stent in 2011
-Continue statin
Chronic HFpEF
-Hold Lasix
Peripheral vascular disease with bilateral distal small vessel disease
Prostate cancer
-Continue tamsulosin
Essential hypertension
Spondylosis
Hyperlipidemia
Full code
DVT prophylaxis�Eliquis
Cardiac diet
Time spent 55 minutes
Anticipated Discharge: > 48 hours
Subjective/Interval History
-
Date of Service: May 01, 2024
Patient still feels about the same today. Productive cough with clear sputum. Afebrile. No chest pain
Objective Data
-
Labs:
Laboratory Results
05/01/24
06:03
WBC 4.3 L
Hgb 11.2 L
Hct 32.7 L
Plt Count 176
Sodium 137
Potassium 3.1 L
Chloride 107
Carbon Dioxide 25
BUN 31 H
Creatinine 0.9
Glucose 92
Calcium 8.4
Total Bilirubin 0.9
AST 83 H
ALT 46
Alkaline Phosphatase 60
Vital Signs:
Vital Signs
Temp Pulse Resp BP Pulse Ox
98.2 F 65 22 117/54 93
05/01/24 08:00 05/01/24 08:52 05/01/24 08:52 05/01/24 08:00 05/01/24 08:52
[2024-05-01] MEDS: KCL 40 MEQ PO (09:36)
[2024-05-01] MEDS: VITAMIN D3 (cholecalciferol) 50 MCG PO (09:37)
[2024-05-01] MEDS: CARDIZEM CD 120 MG PO (09:37)
[2024-05-01] MEDS: MUCINEX 1200 MG PO ×2 (09:37→21:09)
[2024-05-01] MEDS: ELIQUIS 5 MG PO ×2 (09:37→21:08)
[2024-05-01] MEDS: KCL 20 MEQ PO (09:37)
[2024-05-01] MEDS: METAMUCIL, KONSYL 1 PACKET PO (09:37)
[2024-05-01] MEDS: PROTONIX 40 MG PO (09:37)
[2024-05-01 12:28] LABS: Troponin I 0.074 ng/ml
--- NOTE | 2024-05-01 13:20 | PTOTSP ---
ST Acute Care Evaluation
Pt currently presents with clinical symptoms of possible mild pharyngeal dysphagia with solids as exhibited by intermittent throat clearing during mastication and s/p swallow initiations.
Recommendations:
- Continue with regular solids, thin liquids, meds as tolerated.
- Aspiration precautions: HOB fully upright for all PO intake; no talking while eating/drinking; small bites/sips; alternate bites/sips; cough hard if feeling like you need to clear your throat.
- BODY STYLIST will f/u to ensure pt's safely consuming the recommended diet consistencies and to determine whether pt would benefit from an instrumental swallow study.
[2024-05-01] MEDS: VIBRAMYCIN 100 MG PO ×2 (13:29→21:10)
[2024-05-01] MEDS: MIRALAX PO (15:49)
[2024-05-01] MEDS: MELATONIN 5 MG PO (21:15)
[2024-05-02] VITALS (8 sets, daily range): BP systolic 117–146; BP diastolic 50–61; PULSE 63; O2SAT 98
[2024-05-02] MEDS: ZOSYN 50 IV ×4 (01:59→21:39)
[2024-05-02 06:03] LABS: % Basophils 0.2 % (0-2); % Eosinophils 1.8 % (0-6); % Immature Granulocytes 0.2 % (0-0.5); % Lymphocytes 21.7 % (20.5-51.1); % Monocytes 10.9 % (1.7-9.3); % Neutrophils 65.2 % (42.2-75.2); Absolute Eosinophils 0.1 10^3/uL (0-0.7); Absolute Monocytes 0.5 10^3/uL (0.1-0.6); Hematocrit 30.7 % (39.0-52.0); Hemoglobin 10.2 g/dL (13.0-18.0); Mean Corp Hgb Conc. 33.2 g/dL (33.0-37.0); Mean Corpuscular Hgb 29.9 pg (27.0-31.0); Nucleated Red Blood Cells % 0 % (-); Platelet Count 166 10^3/uL (130-400); Red Blood Cell Count 3.41 10^6/uL (4.70-6.10); Red Cell Dist. Width 15.1 % (11.5-14.5); White Blood Cell Count 4.6 10^3/uL (4.8-10.8)
[2024-05-02 06:25] LABS: Blood Urea Nitrogen 16 mg/dl (9-20); Calcium 8.5 mg/dl (8.4-10.2); Carbon Dioxide 22 mmol/L (22-30); Chloride 110 mmol/L (98-107); Estimated Creatinine Clearance 56 ml/min; Glucose 91 mg/dl (70-99); Potassium 3.8 mmol/L (3.5-5.1); Sodium 136 mmol/L (135-145); eGFR > 60.00
[2024-05-02] MEDS: DUONEB 3 ML INH ×4 (07:44→19:54)
[2024-05-02] MEDS: PULMICORT 0.5 MG INH ×2 (07:44→19:54)
[2024-05-02] MEDS: NSS 1000 IV (08:16)
[2024-05-02] MEDS: METAMUCIL, KONSYL 1 PACKET PO (08:21)
[2024-05-02] MEDS: MUCINEX 1200 MG PO ×2 (08:21→21:38)
[2024-05-02] MEDS: ELIQUIS 5 MG PO ×2 (08:22→21:38)
[2024-05-02] MEDS: PROTONIX 40 MG PO (08:22)
[2024-05-02] MEDS: KCL 20 MEQ PO (08:22)
[2024-05-02] MEDS: VITAMIN D3 (cholecalciferol) 50 MCG PO (08:22)
[2024-05-02] MEDS: VIBRAMYCIN 100 MG PO ×2 (08:22→21:38)
[2024-05-02] MEDS: CARDIZEM CD 120 MG PO (08:23)
--- NOTE | 2024-05-02 08:45 | W.PN.HOSP.TC ---
Addendum entered and electronically signed by Doug Infante MD 05/02/24 16:10:
Hypokalemia
Original Note:
Today's Communication/Plan
-
Antibiotics.
Assessment / Plan
Assessment / Plan
Physical exam:
General: Well Developed, Well Nourished and No Apparent Distress
HEENT: Normocephalic, Atraumatic and Moist Mucous Membranes
Respiratory: Clear to Auscultation; Negative Wheezes, Rales or Rhonchi
Cardiac: Regular Rhythm and S1/S2
GI: Soft, Nontender and Nondistended
Musculoskeletal: No Clubbing, No Cyanosis and No Edema
Neuro: Awake, Alert and Oriented
Psych: Calm
A/P:
# Sepsis (fever, tachypnea) secondary to likely bilateral lower lobe pneumonia
-Chest x-ray appears to show bilateral infiltrates
-CT head shows no acute abnormality
-COVID-negative
-Check sputum culture, strep antigen, Legionella, MRSA
-IV fluids can be stopped
-Hold Lasix and restart tomorrow
-Zosyn and doxycycline
-Speech therapy for swallow eval appreciated
-PT OT recommends skilled rehab
-Case management for assistance rehab for discharge disposition
# Diarrhea/vomiting since yesterday possible gastroenteritis
-Check stool studies, C. difficile if persistent. Improving today
-No tenderness of the abdomen
# Nonischemic myocardial injury
-Troponin 0.083
-No chest pain
-Continue to trend
-Check EKG
Chronic Pseudomonas bronchiectasis
Asthma/COPD on 2 L baseline
-Continue albuterol, budesonide,
History of alpha-1 antitrypsin deficiency PIMS phenotype
Chronic atrial fibrillation
-Continue diltiazem
-Continue Eliquis
Sick sinus syndrome status post pacemaker
Coronary artery disease status post LAD stent in 2011
-Continue statin
Chronic HFpEF
-Hold Lasix
Peripheral vascular disease with bilateral distal small vessel disease
Prostate cancer
-Continue tamsulosin
Essential hypertension
Spondylosis
Hyperlipidemia
Full code
DVT prophylaxis�Eliquis
Cardiac diet
Anticipated Discharge: > 48 hours
Subjective/Interval History
-
Date of Service: May 02, 2024
Patient feels better today, less cough, no fever.
Objective Data
-
Labs:
Laboratory Results
05/02/24
05:27
WBC 4.6 L
Hgb 10.2 L
Hct 30.7 L
Plt Count 166
Sodium 136
Potassium 3.8
Chloride 110 H
Carbon Dioxide 22
BUN 16
Creatinine 0.8
Glucose 91
Calcium 8.5
Vital Signs:
Vital Signs
Temp Pulse Resp BP Pulse Ox
97.5 F 60 18 118/53 99
05/02/24 07:54 05/02/24 07:54 05/02/24 07:54 05/02/24 07:54 05/02/24 07:54
I&O
05/01/24 05/02/24 05/03/24
06:59 06:59 06:59
Intake Total 1400 / 1400
Output Total 1300 / 1300
Balance 100 / 100
--- NOTE | 2024-05-02 12:20 | CM ---
CM met with pt at bedside
Pt reports he lives alone in [facility] at [facility] - FF set-up/no steps to enter
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
Has family support
DME - smart vest, nebulizer, oxygen - uses at night - 2L
SNF - [facility] in past
HH - 'thru [facility] in past'
PCP - Dr Flakita Pittman
Pharm - [facility]
PT/OT recs - SNF at discharge - pt aware. Requesting [facility]
Will send referral in [facility]
Plan - anticipate [facility] when medically stable
--- NOTE | 2024-05-02 13:41 | PN.CDI ---
CDI
- -
CDI:
Physician Documentation Request
Admit Date: 04/30/24 21:26
Dear Doctor Naresh,
Clinical Indicators:
Patient admitted with Sepsis.
Potassium 40 meq po x 1 dose given.
Potassium level:
05/01/24
06:03
Potassium 3.1 L
Based on the above, could you clarify in the progress notes, the appropriate diagnosis, if significant, that supports the above abnormalities and additional evaluation, monitoring and/or treatment rendered:
Hypokalemia
Abnormal lab value, clinically insignificant
Other, please specify
Use of terms such as suspected, likely, concern for, or probable (associated with a specific diagnosis that is being evaluated, monitored, or treated as if it exists) are acceptable and can be coded in the inpatient setting, when documented at the
time of discharge.
Thank you,
Alissa Abarca RN BSN
CDI Specialist
available via tiger text
Please use your independent medical judgment in providing your response.
--- NOTE | 2024-05-02 15:44 | PTOTSP ---
ST Follow-Up
Pt continues to present with clinical signs of possible pharyngeal dysphagia.
Recommendations:
- Continue with regular solids, thin liquids, meds as tolerated.
- Aspiration precautions.
- VFSS for more information.
- ELECTRICAL INTERN to provide f/u recommendations following VFSS.
[2024-05-02] MEDS: MIRALAX 17 GRAMS PO (16:23)
[2024-05-02] MEDS: MELATONIN 5 MG PO (21:40)
[2024-05-02] MEDS: LIPITOR 20 MG PO (21:40)
[2024-05-02] MEDS: FLOMAX 0.4 MG PO (21:40)
[2024-05-03 03:05] VITALS: BP 120/50
[2024-05-03] MEDS: ZOSYN 50 IV ×4 (03:33→21:48)
[2024-05-03 07:00] VITALS: BP 118/52
[2024-05-03] MEDS: DUONEB 3 ML INH ×4 (07:24→19:35)
[2024-05-03] MEDS: PULMICORT 0.5 MG INH ×2 (07:24→19:35)
[2024-05-03] MEDS: VITAMIN D3 (cholecalciferol) 50 MCG PO (08:44)
[2024-05-03] MEDS: ELIQUIS 5 MG PO ×2 (08:44→21:48)
[2024-05-03] MEDS: PROTONIX 40 MG PO (08:44)
[2024-05-03] MEDS: MUCINEX 1200 MG PO ×2 (08:44→21:48)
[2024-05-03] MEDS: VIBRAMYCIN 100 MG PO ×2 (08:44→21:48)
[2024-05-03] MEDS: KCL 20 MEQ PO (08:44)
[2024-05-03] MEDS: METAMUCIL, KONSYL 1 PACKET PO (08:44)
[2024-05-03] MEDS: CARDIZEM CD 120 MG PO (08:44)
--- NOTE | 2024-05-03 09:05 | W.PN.HOSP.TC ---
Addendum entered and electronically signed by Doug Infante MD 05/03/24 14:23:
Right Buttock Stage 1 Pressure Injury, POA.
Original Note:
Today's Communication/Plan
-
Continue antibiotics. Adjust inhalers and nebulizers.
Assessment / Plan
Assessment / Plan
Physical exam:
General: Well Developed, Well Nourished and No Apparent Distress
HEENT: Normocephalic, Atraumatic and Moist Mucous Membranes
Respiratory: Clear to Auscultation; Negative Wheezes, Rales or Rhonchi
Cardiac: Regular Rhythm and S1/S2
GI: Soft, Nontender and Nondistended
Musculoskeletal: No Clubbing, No Cyanosis and No Edema
Neuro: Awake, Alert and Oriented
Psych: Calm
A/P:
# Sepsis (fever, tachypnea) secondary to likely bilateral lower lobe pneumonia
-Chest x-ray appears to show bilateral infiltrates
-CT head shows no acute abnormality
-COVID-negative
-Check sputum culture, strep antigen, Legionella, MRSA
-IV fluids can be stopped
-Hold Lasix and restart today
-Zosyn and doxycycline
-Speech therapy for swallow eval appreciated
-PT OT recommends skilled rehab
-Case management for assistance rehab for discharge disposition
# Diarrhea/vomiting since yesterday possible gastroenteritis
-Check stool studies, C. difficile if persistent. Improving today
-No tenderness of the abdomen
# Nonischemic myocardial injury
-Troponin 0.083
-No chest pain
-Continue to trend
-Check EKG
Chronic Pseudomonas bronchiectasis
Asthma/COPD on 2 L baseline
-Continue albuterol, budesonide,
-Patient on albuterol handheld twice a day and as needed and takes also nebs 4 times daily
History of alpha-1 antitrypsin deficiency PIMS phenotype
Chronic atrial fibrillation
-Continue diltiazem
-Continue Eliquis
Sick sinus syndrome status post pacemaker
Coronary artery disease status post LAD stent in 2011
-Continue statin
Chronic HFpEF
-Hold Lasix
Peripheral vascular disease with bilateral distal small vessel disease
Prostate cancer
-Continue tamsulosin
Essential hypertension
Spondylosis
Hyperlipidemia
Full code
DVT prophylaxis�Eliquis
Cardiac diet
Anticipated Discharge: 24 - 48 hours
Subjective/Interval History
-
Date of Service: May 03, 2024
Patient continues to feel better but wants to have his inhaler as he takes at home. Afebrile
Objective Data
-
Vital Signs:
Vital Signs
Temp Pulse Resp BP Pulse Ox
97.6 F 63 16 118/52 95
05/03/24 07:00 05/03/24 08:44 05/03/24 07:31 05/03/24 08:44 05/03/24 07:31
I&O
05/02/24 05/03/24 05/04/24
06:59 06:59 06:59
Intake Total 1400 / 1400 1720 / 1720
Output Total 1300 / 1300 925 / 925
Balance 100 / 100 795 / 795
[2024-05-03] MEDS: ProAIR HFA INHALER 2 PUFF INH (10:35)
[2024-05-03] MEDS: ProAIR HFA INHALER INH (10:45)
--- NOTE | 2024-05-03 10:58 | PTOTSP ---
Video Swallow Examination
Oral/pharyngeal swallow deemed within functional limits. Prolonged but effective mastication with trace lingual stasis across trials. Prompt swallow onset with full tongue base retraction, anterior hyoid movement, epiglottic inversion, laryngeal
vestibular closure and a present pharyngeal stripping wave. No laryngeal penetration or aspiration. Trace vallecular stasis across trials with slightly more retention with consecutive sips of thin liquid.
A cricopharyngeal spasm did not obstruct flow. Esophagus not viewed per attending radiologist discretion.
Recommend
1. Continue regular solids and thin liquids
2. Upright with meals
3. Meds with liquid or as best tolerate.
No further skilled ST indicated at this time.
[2024-05-03] MEDS: LASIX 60 MG PO ×2 (12:15→15:25)
--- NOTE | 2024-05-03 13:50 | PN.CDI ---
CDI
- -
CDI:
Physician Documentation Request
Admit Date: 04/30/24 21:26
Dear Doctor Naresh,
Clinical Indicators:
Patient admitted with Sepsis.
05/01- 05/03 RN Skin Wound assessments: Right Buttock Stage 1 Pressure Injury, POA.
Treatment: Barrier Ointment per protocol
Physician documentation of the type and location of wounds is required for compliant documentation. Based on the above clinical findings and your assessment, please provide the following in your progress note:
1. Location of the ulcer/wound, including laterality.
2. Type (etiology) of ulcer/wound:
- Pressure (decubitus) ulcer
- Other, please specify
- Unable to determine
3. If a pressure ulcer, please also include the stage* of the ulcer:
- Stage 1 - Skin intact, non-blanchable redness
- Stage 2 - Partial thickness loss of dermis, includes intact or open blister
- Stage 3 - Full thickness tissue not including bone, tendon or muscle
- Stage 4 - Full thickness tissue loss, including exposed bone, tendon or muscle
- Unstageable - Full thickness loss in which the base of the ulcer is covered by slough (yellow, bourgeois, patel, green or brown) and/or eschar (bourgeois, brown or black) in the wound bed.
- Unable to determine
Use of terms such as suspected, likely, concern for, or probable (associated with a specific diagnosis that is being evaluated, monitored, or treated as if it exists) are acceptable and can be coded in the inpatient setting, when documented at the
time of discharge.
Thank you,
Alissa Abarca RN BSN
CDI Specialist
available via tiger text
Please use your independent medical judgment in providing your response.
*Source: National Pressure Ulcer Advisory Panel (NPUAP)
[2024-05-03 14:25] VITALS: BP 126/60; PULSE 66; O2SAT 98
[2024-05-03 15:00] VITALS: BP 119/57
[2024-05-03] MEDS: MIRALAX 17 GRAMS PO (15:25)
[2024-05-03] MEDS: ProAIR HFA INHALER 1 PUFF INH (19:35)
[2024-05-03] MEDS: MELATONIN 5 MG PO (21:48)
[2024-05-03] MEDS: LIPITOR 20 MG PO (21:48)
[2024-05-03] MEDS: FLOMAX 0.4 MG PO (21:48)
[2024-05-03 23:28] VITALS: BP 132/59
[2024-05-04] MEDS: ZOSYN 50 IV ×4 (02:39→21:10)
[2024-05-04 05:43] LABS: % Basophils 0.2 % (0-2); % Eosinophils 1.5 % (0-6); % Immature Granulocytes 0.4 % (0-0.5); % Lymphocytes 26.5 % (20.5-51.1); % Monocytes 12.7 % (1.7-9.3); % Neutrophils 58.7 % (42.2-75.2); Absolute Eosinophils 0.1 10^3/uL (0-0.7); Absolute Lymphocytes 1.4 10^3/uL (1.2-3.4); Absolute Monocytes 0.7 10^3/uL (0.1-0.6); Absolute Neutrophils 3.2 10^3/uL (1.4-6.5); Hematocrit 28.5 % (39.0-52.0); Hemoglobin 9.8 g/dL (13.0-18.0); Mean Corp Hgb Conc. 34.4 g/dL (33.0-37.0); Mean Corpuscular Volume 87.2 fL (80.0-94.0); Mean Platelet Volume 8.8 fL (7.4-10.4); Nucleated Red Blood Cells % 0 % (-); Platelet Count 172 10^3/uL (130-400); Red Blood Cell Count 3.27 10^6/uL (4.70-6.10); Red Cell Dist. Width 14.7 % (11.5-14.5); White Blood Cell Count 5.4 10^3/uL (4.8-10.8)
[2024-05-04 06:00] VITALS: BMI 23.8
[2024-05-04 06:18] LABS: Blood Urea Nitrogen 15 mg/dl (9-20); Calcium 8.6 mg/dl (8.4-10.2); Carbon Dioxide 22 mmol/L (22-30); Chloride 107 mmol/L (98-107); Estimated Creatinine Clearance 56 ml/min; Glucose 84 mg/dl (70-99); Magnesium 1.5 mg/dl (1.6-2.3); Potassium 3.3 mmol/L (3.5-5.1); Sodium 136 mmol/L (135-145); eGFR > 60.00
[2024-05-04 07:00] VITALS: BP 124/78
[2024-05-04] MEDS: PULMICORT 0.5 MG INH ×2 (07:40→20:05)
[2024-05-04] MEDS: DUONEB 3 ML INH ×4 (07:40→19:55)
[2024-05-04] MEDS: ProAIR HFA INHALER 1 PUFF INH ×2 (07:40→19:55)
[2024-05-04] MEDS: VIBRAMYCIN 100 MG PO ×2 (08:27→21:09)
[2024-05-04] MEDS: VITAMIN D3 (cholecalciferol) 50 MCG PO (08:27)
[2024-05-04] MEDS: METAMUCIL, KONSYL 1 PACKET PO (08:27)
[2024-05-04] MEDS: MUCINEX 1200 MG PO ×2 (08:27→21:10)
[2024-05-04] MEDS: LASIX 60 MG PO ×2 (08:28→17:12)
[2024-05-04] MEDS: CARDIZEM CD 120 MG PO (08:28)
[2024-05-04] MEDS: ELIQUIS 5 MG PO ×2 (08:28→21:10)
[2024-05-04] MEDS: PROTONIX 40 MG PO (08:28)
[2024-05-04] MEDS: KCL 20 MEQ PO (08:28)
--- NOTE | 2024-05-04 09:41 | W.PN.HOSP.TC ---
Today's Communication/Plan
-
Antibiotics. Pulmonary eval
Assessment / Plan
Assessment / Plan
Physical exam:
General: Well Developed, Well Nourished and No Apparent Distress
HEENT: Normocephalic, Atraumatic and Moist Mucous Membranes
Respiratory: Clear to Auscultation; Negative Wheezes, Rales or Rhonchi
Cardiac: Regular Rhythm and S1/S2
GI: Soft, Nontender and Nondistended
Musculoskeletal: No Clubbing, No Cyanosis and No Edema
Neuro: Awake, Alert and Oriented
Psych: Calm
A/P:
# Sepsis (fever, tachypnea) secondary to likely bilateral lower lobe pneumonia
Improving
On IV antibiotics but can switch to oral over the next 24 hours
Pulmonary consult on patient request
PT OT recommends skilled rehab
Case management for assistance rehab for discharge disposition
# Diarrhea/vomiting since yesterday possible gastroenteritis
Resolved
#Lower urinary tract symptoms
Check UA rule out UTI but seems less likely and rather prostate related symptoms can be follow-up as outpatient
Add pyridium
# Nonischemic myocardial injury
-Troponin 0.083
-No chest pain
#Chronic Pseudomonas bronchiectasis
#Chronic HFpEF
-On home doses of Lasix
#Asthma/COPD on 2 L baseline
Continue albuterol, budesonide,
Patient on albuterol handheld twice a day and as needed and takes also nebs 4 times daily--> he states that is the regimen pulmonary has him on.
No need for systemic steroids in the moment
History of alpha-1 antitrypsin deficiency PIMS phenotype
Chronic atrial fibrillation
-Continue diltiazem
-Continue Eliquis
Sick sinus syndrome status post pacemaker
Coronary artery disease status post LAD stent in 2011
-Continue statin
Peripheral vascular disease with bilateral distal small vessel disease
Prostate cancer
-Continue tamsulosin
Essential hypertension
Spondylosis
Hyperlipidemia
Full code
DVT prophylaxis�Eliquis
Cardiac diet
Anticipated Discharge: 24 - 48 hours
Subjective/Interval History
-
Date of Service: May 04, 2024
Patient less shortness of breath and less cough. Complains of some dysuria. Afebrile
Objective Data
-
Labs:
Laboratory Results
05/04/24
05:23
WBC 5.4
Hgb 9.8 L
Hct 28.5 L
Plt Count 172
Sodium 136
Potassium 3.3 L
Chloride 107
Carbon Dioxide 22
BUN 15
Creatinine 0.8
Glucose 84
Calcium 8.6
Vital Signs:
Vital Signs
Temp Pulse Resp BP Pulse Ox
98.0 F 80 16 124/78 95
05/04/24 07:00 05/04/24 08:28 05/04/24 07:45 05/04/24 08:28 05/04/24 07:45
I&O
05/03/24 05/04/24 05/05/24
06:59 06:59 06:59
Intake Total 1720 / 1720 1200 / 1200
Output Total 925 / 925 3345 / 3345
Balance 795 / 795 -2145 / -2145
[2024-05-04] MEDS: KCL 40 MEQ PO (09:49)
--- NOTE | 2024-05-04 11:10 | CON.PUL ---
Consultation
Consultation Request
Date/Time Consultation Requested: 05/04/24
Date/Time Consultation Performed: 05/04/24
Performing Provider: Connor
Reason for Consultation: PNA
Medical History
-
History of Present Illness:
Patient is a 89-year-old male with past medical history of asthma/COPD on 2 L baseline, alpha-1 antitrypsin PIMS phenotype, chronic Pseudomonas colonization, bronchiectasis, chronic atrial fibrillation, sick sinus syndrome status post pacemaker,
coronary artery disease history of LAD stent in 2011, HFpEF, presenting to ER with progressive generalized weakness, was unable to get out of bed, had garbled speech.
Patient does complain of productive cough. His shortness of breath is slightly worse than usual.
Follows with Dr Tobar, last seen 03/22/24.
CXR obtained showing most progressive findings in lateral base on CXR possibly indicating PNA. He is not hypoxemic, stable on RA. Placed on IV abx.
Past Medical History
Past Medical History: Other (see list below)
Social History
Tobacco: Non-smoker
Alcohol: None
Drug: None
Family History
Family History: Reviewed & Not Pertinent
Allergies / Home Medications
Allergies
Allergy/AdvReac Type Severity Reaction Status Date / Time
levofloxacin [From Levaquin] Allergy torn Verified 04/30/24 18:25
achilles
tendon
Home Medications
�Medication �Instructions �Recorded �Confirmed �Last Taken �Type
tamsulosin 0.4 mg capsule 0.4 mg PO HS Urinary issue 10/12/17 04/30/24 04/29/24 History
albuterol sulfate 90 mcg/actuation 2 puff inhalation R QIDPRN PRN 07/18/19 04/30/24 12/01/22 12:00 History
aerosol inhaler Lung/breathing issues
atorvastatin 20 mg tablet 20 mg PO HS High cholesterol 07/18/19 04/30/24 04/29/24 History
furosemide 40 mg tablet 60 mg PO BID Fluid 07/18/19 04/30/24 04/29/24 History
retention/Swelling
melatonin 5 mg tablet 5 mg PO HS Sleep 07/18/19 04/30/24 04/29/24 History
potassium chloride 20 mEq 20 meq PO DAILY Supplement 07/18/19 04/30/24 04/29/24 History
tablet,extended
release(part/cryst) (Klor-Con M)
pantoprazole 40 mg tablet,delayed 40 mg PO DAILY #30 tabs 10/11/19 04/30/24 04/29/24 Rx
release
apixaban 5 mg tablet (Eliquis) 5 mg PO BID Blood clot 04/02/20 04/30/24 04/29/24 Rx
prevention/tx ##0
guaifenesin 600 mg tablet, 1,200 mg PO BID Cough 11/17/22 04/30/24 04/29/24 History
extended release 12 hr (Mucus
Relief ER)
polyethylene glycol 3350 17 gram 17 g PO DAILYPRN PRN constipation 11/17/22 04/30/24 11/30/22 16:00 History
oral powder packet (Miralax)
psyllium 1 packet PO DAILY Constipation 11/17/22 04/30/24 04/29/24 History
diltiazem HCl 120 mg 120 mg PO DAILY Heart 12/01/22 04/30/24 04/29/24 History
capsule,extended release 24 hr disease/condition
budesonide 0.5 mg/2 mL suspension 0.5 mg inhalation R BID 01/27/23 04/30/24 Unknown History
for nebulization Lung/Breathing Issues
cholecalciferol (vitamin D3) 50 50 mcg PO DAILY Supplement 04/30/24 04/30/24 04/29/24 History
mcg (2,000 unit) tablet (Vitamin
D3)
ipratropium 0.5 mg-albuterol 3 mg 3 ml inhalation R TID 04/30/24 04/30/24 04/29/24 History
(2.5 mg base)/3 mL nebulization Lung/Breathing Issues
soln
triamcinolone acetonide 0.1 % 1 applic topical DAILYPRN PRN back 04/30/24 04/30/24 Unknown History
topical cream
Review of Systems
-
History Source: Patient
All other systems: Negative unless noted
Vitals / Labs / Diagnostic Testing
Vital Signs
Temp Pulse Resp BP Pulse Ox
98.0 F 80 16 124/78 95
05/04/24 07:00 05/04/24 08:28 05/04/24 07:45 05/04/24 08:28 05/04/24 07:45
Lab Data
05/04/24 05:23
05/04/24 05:23
Microbiology
04/30/24 22:00 Nose MRSA Screen - Final
No Methicillin Resistant Staphylococcus aureus isolated.
05/01/24 13:38 Sputum Respiratory Culture - Final
05/01/24 13:38 Sputum Gram Stain - Final
04/30/24 19:24 Urine Urine Culture - Final
05/01/24 06:03 Urine Legionella Urinary Antigen - Final
Negative for Legionella pneumophila Serogroup 1 antigen.
A negative result does not rule out the possiblity of
Legionella infection due to other serogroups or species of
Legionella. Clinical correlation is recommended.
05/01/24 06:03 Urine Streptococcus pneumoniae Antigen (M - Final
Negative for Streptococcus pneumoniae antigen.
A negative result does not exclude infection with
Streptococcus pneumoniae. Clinical correlation is
recommended.
Diagnostic Testing:
Physical Exam
-
HEENT: Normocephalic, Anicteric and Moist Mucous Membranes
Cardiovascular: S1/S2 and Regular Rhythm
Respiratory: Wheeze, Rales and Non-Labored Respirations
GI: Soft, Non Distended and Non Tender
Neurology: Awake, Alert, Oriented, AO x 3 and No Motor Deficits
Skin: Warm, Dry and Good Color
General: Comfortable and Other (NAD)
Assessment
-
Patient is a 89-year-old male with past medical history of asthma/COPD on 2 L baseline, alpha-1 antitrypsin PIMS phenotype, chronic Pseudomonas colonization, bronchiectasis, chronic atrial fibrillation, sick sinus syndrome status post pacemaker,
coronary artery disease history of LAD stent in 2011, HFpEF, presenting to ER with progressive generalized weakness, was unable to get out of bed, had garbled speech. CXR obtained showing most progressive findings in lateral base on CXR possibly
indicating PNA. He is not hypoxemic, stable on RA. Placed on IV abx. We are consulted for eval.
Possible PNA, CXR showing basilar infiltrate
Acute on chronic SOB
Generalized weakness
Hypokalemia
Conditions present prior to admission:
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
Maintained on DuoNebs twice daily as well as budesonide nebulizers twice daily
Asmanex once daily and Mucinex in addition to oxygen and vest therapy
Asthma.
Bronchiectasis-on vest therapy and Acapella
Alpha 1 antitrypsin PiMS phenotype.
Tracheomalacia.
CHF chronic.
Atrial fibrillation.
Former smoker.
Decreased diffusing capacity.
Prostate cancer.
Hypertension.
Spondylosis.
CAD/LAD stent 2011.
Sick sinus syndrome.
Bilateral inguinal hernia repair. Permanent pacemaker-generator change April 2020. Umbilical hernia repair. Tonsillectomy. Lumbar surgery. Right humerus OR internal fixation November 2022
Plan
Currently stable on RA, notes his SOB is at baseline
Suspect respiratory decompensation possibly due to PNA, but CXR could indicate fluid/worsening lung disease
Prior imaging reviewed, chronic basilar changes at bases
Recent lumbar CT reviewed, limited lung views but ILD appears at basis
Could obtain dedicated Chest CT as OP
Clinically improved: Afebrile.
Not requiring supplemental oxygen.
Not significantly bronchospastic on exam
Will check procal and proBNP to rule out other causes of CXR
If negative, can likely stop abx
Obtain sputum culture if able
Possible COPD exacerbation, daughter feels he does better with prednisone
Will start 40mg taper
Continue home nebulizers-DuoNebs and budesonide
Mucolytic's
Incentive spirometry
Acapella
Vest therapy-has at home-significant bronchiectasis
Sputum with pansensitive pseudomonas.
On Zosyn
Check procal
DVT prophylaxis-on Eliquis
GI prophylaxis-on pantoprazole
Agree with discharge plans for rehab
Updated daughter on the phone
Outpatient pulmonary follow-up with Dr. Tobar, repeat PFTs
Diagnostic data:
CXR 04/10/24- Interval increased reticulonodular markings involving the left lower lung, best seen on the lateral view, suspicious for pneumonia.
CXR 01-27-23: portable, no gross infiltrates
Chest x-ray 11/23/2019-redemonstration of bibasilar opacifications compatible with scarring and atelectasis
Chest x-ray-new coarsening of interstitial markings raising concern for multifocal interstitial pneumonia versus early CHF
CT chest 11/12/2015-irregular interstitial disease bilaterally fairly extensive bronchiectasis in the left lower lobe and minimal bronchiectasis right middle lobe, fatty liver
ECHO 01/05/24- Normal left ventricular chamber size. Low normal left ventricular systolic function; estimated ejection fraction is 50% by visual estimate. No gross regional wall motion abnormalities. Abnormal (paradoxical) septal motion consistent
with RV pacemaker. Mild concentric left ventricular hypertrophy. Diastolic function indeterminate. Enlarged right ventricular size. Normal right ventricular systolic function. Pacer wire seen in right ventricle.
Mild mitral regurgitation. Mild aortic regurgitation. Moderate tricuspid regurgitation. Estimated pulmonary artery pressure of 40-45 mmHg. Assuming a right atrial pressure of 8 mmHg.
Compared to prior study dated 06/18/22 which was directly reviewed, there is no significant change
Echocardiogram 06/18/2022-EF 50-55%, mild mitral regurgitation
PFT 06/07/2019-FEV1 1.3-56%, FVC 3-90%, TLC 85%, DLCO 46%
[2024-05-04 11:25] VITALS: BP 121/54; PULSE 70; O2SAT 95
[2024-05-04] MEDS: Pyridium 100 MG PO ×3 (13:18→23:57)
--- NOTE | 2024-05-04 14:12 | CM ---
Case management following for d/c planning
Pt for SNF at d/c
Spoke with Lindy at [facility] - can accept over weekend if medically ready
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
R - [phone]
- [phone]
CM will cont to follow for d/c needs
Plan - anticipate transfer to [facility] when medically ready
[2024-05-04 15:00] VITALS: BP 123/60
[2024-05-04 16:34] LABS: Procalcitonin 0.25 ng/ml (0.0-0.25)
[2024-05-04 16:35] VITALS: BP 117/51; PULSE 62; O2SAT 96
[2024-05-04] MEDS: MIRALAX 17 GRAMS PO (17:12)
[2024-05-04] MEDS: DELTASONE 40 MG PO (17:13)
[2024-05-04 17:55] LABS: NT-proBNP 6100 pg/ml
[2024-05-04 19:21] LABS: Urine Albumin Negative (Neg - Trace); Urine Bilirubin Negative (Negative); Urine Character Clear (Clear); Urine Color Yellow; Urine Glucose Negative (Negative); Urine Ketone Negative (Negative); Urine Leukocyte Negative (Negative); Urine Nitrite Negative (Negative); Urine Occult Blood Negative (Negative); Urine Specific Gravity 1.015 (<1.030); Urine Urobilinogen Negative (Neg - 1+)
[2024-05-04] MEDS: LIPITOR 20 MG PO (21:11)
[2024-05-04] MEDS: MELATONIN 5 MG PO (21:11)
[2024-05-04] MEDS: FLOMAX 0.4 MG PO (21:11)
[2024-05-04 23:59] VITALS: BP 108/41
[2024-05-05] MEDS: ZOSYN 50 IV ×4 (02:28→21:46)
[2024-05-05 06:00] VITALS: BMI 23.8
[2024-05-05 07:00] VITALS: BP 133/68
[2024-05-05] MEDS: ProAIR HFA INHALER 1 PUFF INH ×2 (07:18→19:55)
[2024-05-05] MEDS: PULMICORT 0.5 MG INH ×2 (07:18→19:55)
[2024-05-05] MEDS: DUONEB 3 ML INH ×4 (07:18→19:55)
[2024-05-05] MEDS: CARDIZEM CD 120 MG PO (08:08)
[2024-05-05] MEDS: LASIX 60 MG PO ×2 (08:09→16:15)
[2024-05-05] MEDS: KCL 20 MEQ PO (08:09)
[2024-05-05] MEDS: ELIQUIS 5 MG PO ×2 (08:09→21:45)
[2024-05-05] MEDS: PROTONIX 40 MG PO (08:10)
[2024-05-05] MEDS: DELTASONE 40 MG PO (08:10)
[2024-05-05] MEDS: VIBRAMYCIN 100 MG PO ×2 (08:11→21:46)
[2024-05-05] MEDS: VITAMIN D3 (cholecalciferol) 50 MCG PO (08:12)
[2024-05-05] MEDS: MUCINEX 1200 MG PO ×2 (08:12→21:46)
--- NOTE | 2024-05-05 08:44 | W.PN.HOSP.TC ---
Addendum entered and electronically signed by Doug Infante MD 05/05/24 11:08:
Also with increased BNP and concerns with heart failure will obtain a cardiology consult.
Original Note:
Today's Communication/Plan
-
Antibiotics. Diuretics. Repeat labs. Chest x-ray. Steroids
Assessment / Plan
Assessment / Plan
Physical exam:
General: Well Developed, Well Nourished and No Apparent Distress
HEENT: Normocephalic, Atraumatic and Moist Mucous Membranes
Respiratory: Few Wheezes, No Rales or Rhonchi
Cardiac: Regular Rhythm and S1/S2
GI: Soft, Nontender and Nondistended
Musculoskeletal: No Clubbing, No Cyanosis and No Edema
Neuro: Awake, Alert and Oriented
Psych: Calm
A/P:
# Sepsis (fever, tachypnea) secondary to likely bilateral lower lobe pneumonia
Improving
On IV antibiotics but can switch to oral or discontinue over the next 24 hours
Pulmonary consult on patient request--> appreciated input.
Started on steroids
Continue on oral diuretics
Will repeat a chest x-ray today
Checking repeat labs
PT OT recommends skilled rehab
Case management for assistance rehab for discharge disposition
# Diarrhea/vomiting since yesterday possible gastroenteritis
Resolved
#Lower urinary tract symptoms
No evidence of UTI
# Nonischemic myocardial injury
-Troponin 0.083
-No chest pain
#Chronic Pseudomonas bronchiectasis
#Chronic HFpEF
-On home doses of Lasix
#Asthma/COPD on 2 L baseline
Continue albuterol, budesonide,
Patient on albuterol handheld twice a day and as needed and takes also nebs 4 times daily--> he states that is the regimen pulmonary has him on.
No need for systemic steroids in the moment
History of alpha-1 antitrypsin deficiency PIMS phenotype
Chronic atrial fibrillation
-Continue diltiazem
-Continue Eliquis
Sick sinus syndrome status post pacemaker
Coronary artery disease status post LAD stent in 2011
-Continue statin
Peripheral vascular disease with bilateral distal small vessel disease
Prostate cancer
-Continue tamsulosin
Essential hypertension
Spondylosis
Hyperlipidemia
Full code
DVT prophylaxis�Eliquis
Cardiac diet
Anticipated Discharge: 24 - 48 hours
Subjective/Interval History
-
Date of Service: May 05, 2024
Patient less shortness of breath, he does have some wheezing today, less cough. Afebrile
Objective Data
-
Vital Signs:
Vital Signs
Temp Pulse Resp BP Pulse Ox
97.5 F 88 20 133/68 94
05/05/24 07:00 05/05/24 08:08 05/05/24 07:45 05/05/24 08:08 05/05/24 07:45
I&O
05/04/24 05/05/24 05/06/24
06:59 06:59 06:59
Intake Total 1200 / 1200 1500 / 1500
Output Total 3345 / 3345 2670 / 2670
Balance -2145 / -2145 -1170 / -1170
--- NOTE | 2024-05-05 10:34 | W.PN.PUL3 ---
Today's Communication / Plan
-
Antibiotics to complete 7-day course
Nebulized bronchodilators + budesonide
Prednisone course with slow wean - reduce dose by 10 mg every fourth day until off
Up OOB as tolerated
Skilled rehab upon discharge
Encourage incentive spirometer
Acappella + vest
Pulmonary service will continue to follow along; suspect he will be prepared for discharge to skilled rehab tomorrow
Outpatient follow up with Dr. Tobar
Assessment
-
Patient is a 89-year-old male with past medical history of asthma/COPD on 2 L baseline, alpha-1 antitrypsin PIMS phenotype, chronic Pseudomonas colonization, bronchiectasis, chronic atrial fibrillation, sick sinus syndrome status post pacemaker,
coronary artery disease history of LAD stent in 2011, HFpEF, presenting to ER with progressive generalized weakness, was unable to get out of bed, had garbled speech. CXR obtained showing most progressive findings in lateral base on CXR possibly
indicating PNA. He is not hypoxemic, stable on RA. Placed on IV abx. We are consulted for eval.
Impression:
Bilateral CAP - CXR showing basilar infiltrate + retrocardiac opacity
Acute on chronic SOB due to above
COPD exacerbation due to above
Generalized weakness
Hypokalemia � resolved
Conditions present prior to admission:
COPD moderate�severe severity-oxygen dependent-followed by Dr Tobar-last seen 03/2024
Maintained on DuoNebs twice daily as well as budesonide nebulizers twice daily
Asmanex once daily and Mucinex in addition to oxygen and vest therapy
Most recent spirometry from 03/16/2022 shows severe COPD with mild restrictive defect; last full PFT from 06/2019 shows moderate COPD
Asthma.
Bronchiectasis in the RML + lingula - on vest therapy and Acapella
Alpha 1 antitrypsin PiMS phenotype.
Tracheomalacia.
CHF chronic.
Atrial fibrillation.
Former smoker.
Decreased diffusing capacity.
Prostate cancer.
Hypertension.
Spondylosis.
CAD/LAD stent 2011.
Sick sinus syndrome.
Bilateral inguinal hernia repair. Permanent pacemaker-generator change April 2020. Umbilical hernia repair. Tonsillectomy. Lumbar surgery. Right humerus OR internal fixation November 2022
Plan
Currently stable on RA, notes his SOB is at baseline
Suspect respiratory decompensation likely due to PNA, but CXR could indicate fluid/worsening lung disease
Prior imaging reviewed, chronic basilar changes at bases however his retrocardiac opacification has worsened and there is worsening opacification in the right base as well
Recent lumbar CT reviewed, limited lung views but there appears to be reticular changes at the bases
Could obtain dedicated Chest CT as OP
Clinically improved: Afebrile.
Not requiring supplemental oxygen.
Not significantly bronchospastic on exam
Will check procal and proBNP to rule out other causes of CXR --> Procal 0.25+ proBNP 6100 (both from 05/04/2024)
Give 5-7 days of antibiotics
Sputum culture from 05/01/2024 shows NGTD
Suspected COPD exacerbation, daughter feels he does better with prednisone
Currently on 40 mg prednisone (started 05/04) � slow wean with reduction in dose by 10 mg every fourth day until off
Continue home nebulizers-DuoNebs QID and budesonide BID
Mucolytics
Incentive spirometry encouraged
Acapella
Vest therapy-has at home-significant bronchiectasis
Has history of Pseudomonas aeruginosa (perkins�sensitive) from prior sputum culture in January 2023
Continue with Zosyn + Doxy and would treat for at least 7 days with antibiotics
- Zosyn started 04/30; Doxy started 05/01
DVT prophylaxis-on Eliquis
GI prophylaxis-on pantoprazole
Agree with discharge plans for skilled rehab
Outpatient pulmonary follow-up with Dr. Tobar, repeat PFTs
Pulmonary service will continue to follow along. Hopefully he will be ready for discharge tomorrow.
Total time spent today was 35 minutes for this encounter. Time includes reviewing laboratory test/imaging results, reviewing pertinent medical records, obtaining and reviewing medical history, performing an appropriate exam, ordering medications,
tests and procedures. Time also includes documentation of this encounter, coordinating patient care and communicating with other healthcare professionals. Total time does not include separately billed tests performed on this date of service.
Diagnostic data:
CXR 04/10/24- Interval increased reticulonodular markings involving the left lower lung, best seen on the lateral view, suspicious for pneumonia.
CXR 01-27-23: portable, no gross infiltrates
Chest x-ray 11/23/2019-redemonstration of bibasilar opacifications compatible with scarring and atelectasis
Chest x-ray-new coarsening of interstitial markings raising concern for multifocal interstitial pneumonia versus early CHF
CT chest 11/12/2015-irregular interstitial disease bilaterally fairly extensive bronchiectasis in the left lower lobe and minimal bronchiectasis right middle lobe, fatty liver
ECHO 01/05/24- Normal left ventricular chamber size. Low normal left ventricular systolic function; estimated ejection fraction is 50% by visual estimate. No gross regional wall motion abnormalities. Abnormal (paradoxical) septal motion consistent
with RV pacemaker. Mild concentric left ventricular hypertrophy. Diastolic function indeterminate. Enlarged right ventricular size. Normal right ventricular systolic function. Pacer wire seen in right ventricle.
Mild mitral regurgitation. Mild aortic regurgitation. Moderate tricuspid regurgitation. Estimated pulmonary artery pressure of 40-45 mmHg. Assuming a right atrial pressure of 8 mmHg.
Compared to prior study dated 06/18/22 which was directly reviewed, there is no significant change
Echocardiogram 06/18/2022-EF 50-55%, mild mitral regurgitation
PFT 06/07/2019-FEV1 1.3-56%, FVC 3-90%, TLC 85%, DLCO 46%
Subjective Data
-
Date of Service:
Date of Service: May 05, 2024
Chief Complaint: Pulmonary Follow Up
Subjective:
Patient seen and evaluated today at bedside. He says he feels 75% better today. Shortness of breath is much improved. Still coughing but he says it is his usual, baseline cough. He is hopefully being discharged tomorrow. No acute events
reported from overnight. Currently on room air breathing comfortably. He denies chest pain, headache, abdominal pain, fevers or chills.
Review of Systems
General: Other (Negative unless mentioned above)
Objective Data
Data Reviewed
Vital Signs / I&O / Oxygen:
Vital Signs
Temp Pulse Resp BP Pulse Ox
97.5 F 88 20 133/68 94
05/05/24 07:00 05/05/24 08:08 05/05/24 07:45 05/05/24 08:08 05/05/24 07:45
Intake and Output
05/04/24 05/05/24 05/06/24
06:59 06:59 06:59
Intake Total 1200 / 1200 1500 / 1500
Output Total 3345 / 3345 2670 / 2670
Balance -2145 / -2145 -1170 / -1170
SaO2 94
Nasal Cannula flow liters per 2
minute
Physical Exam
General: Respiratory Distress (Negative) and Comfortable
HEENT: Normocephalic and Anicteric
Cardiovascular: S1-S2 and Peripheral Edema (Negative)
Respiratory: Wheeze (Negative), Crackles (Bibasilar), Rhonchi (Bibasilar) and Non-Labored Respirations
GI: Soft, Non Distended, Non Tender and Normal Bowel Sounds
Neurology: Awake, Alert and Tremors (Negative)
Skin: Warm, Dry and Jaundice (Negative)
Labs/Micro/Reports
Lab Data
05/04/24 05:23
05/04/24 05:23
Microbiology
04/30/24 22:00 Nose MRSA Screen - Final
No Methicillin Resistant Staphylococcus aureus isolated.
--- NOTE | 2024-05-05 11:25 | CON.CAR ---
Consultation
Consultation Request
Date/Time Consultation Requested: May 05, 2024
Date/Time Consultation Performed: May 05, 2024
Requesting Provider: Dr. Infante
Performing Provider: Dr. Acevedo
Reason for Consultation: Eval for heart failure
Medical History
-
Chief Complaint: Weakness
History of Present Illness:
.
Kofi is an 89-year-old male with past medical history of chronic atrial fibrillation on chronic Eliquis, sick sinus syndrome status post permanent pacemaker, LAD stent 2011, HFpEF, asthma/COPD on 2 L at baseline with alpha-1 antitrypsin PIMS
phenotype, chronic Pseudomonas colonization, bronchiectasis, tracheomalacia, hypertension, hyperlipidemia, prior smoker, neuropathy who was admitted 5 days ago with sepsis presenting with weakness in the setting of significant diarrhea with
vomiting. Chest x-ray showed bilateral infiltrates. The patient was COVID-negative. His Lasix was stopped and he received IV fluids. He was treated with broad-spectrum antibiotics. The patient states that his belly was getting swollen and he
asked about his lasix. It was resumed at his outpt dose of 60 mg BID. His wt is the lowest it has been at [place] at 147. Wt was 155 in February 2024. his pBNP was higher at 6100. Chest xray done today May 05 without evidence of HF. Cardiology
consulted to eval for HF adding to multifactorial dyspnea.
He states his breathing has improved. Treated for b/l PNA and sepsis. Seen by pulmonary yesterday. He remained on Lasix 60 mg twice a day.
Was seen in the hospital in February 2024 when he was admitted with exacerbation COPD, acute COVID pneumonitis, chronic bronchiectasis with acute exacerbation, chronic Pseudomonas and had been seen by cardiology. He follows with Dr. Celeste Hutchins and
was last seen in the office December 2023.
CXR 05/05/2024 11:56 AM: Low lung volumes and bibasilar atelectatic changes. Minimal bilateral effusions are possible, considered less likely. Unchanged cardiomegaly.
Echo January 2024: EF 50% with paradoxical septal wall motion consistent with RV pacemaker, mild LVH, enlarged RV with normal RV function, pacer wire seen in the RV, mild MR, mild AR, moderate TR, pulmonary artery pressure of 40 to 45 mmHg. No
significant change from June 2022.
Past Medical History:
Coronary Artery Disease�
s/p LAD stent 2012Chronic HFpEF
Chronic atrial fibrillation
SSS status post DC [employer] pacemaker w/ gen change 04/2020
Hypertension
Hyperlipidemia
COPD/Bronchiectasis/alpha-1 antitrypsin PIMS phenotype/chronic 2 L O2
Pseudomonas colonization
Tracheomalacia
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
History of prostate cancer
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
Bilateral Inguinal Hernia Repair
Umbilical Hernia Repair
Tonsillectomy
Lumbar Laminectomy
Neuropathy
Past smoker
Past Medical History
Past Medical History: Other (See HPI)
Past Surgical History: Cardiac (pacemaker w/ gen change 04/2020), Tonsilectomy and Other (Bilateral Inguinal Hernia Repair, Umbilical Hernia Repair, Lumbar Laminectomy, Rt humerus ORIF 11/2022)
Social History
Tobacco: Former Smoker (Oxygen dependent)
Alcohol: Occasional
Drug: None
Living: Assisted Living
Family History
Family History: Cancer (father lung CA) and Other (Mother stroke, Brother suspected AAA rupture at 42)
Allergies / Home Medications
Allergy/AdvReac Type Severity Reaction Status Date / Time
levofloxacin [From Levaquin] Allergy torn Verified 04/30/24 18:25
achilles
tendon
�Medication �Instructions �Recorded �Confirmed �Type
tamsulosin 0.4 mg capsule 0.4 mg PO HS Urinary issue 10/12/17 04/30/24 History
albuterol sulfate 90 mcg/actuation 2 puff inhalation R QIDPRN PRN 07/18/19 04/30/24 History
aerosol inhaler Lung/breathing issues
atorvastatin 20 mg tablet 20 mg PO HS High cholesterol 07/18/19 04/30/24 History
furosemide 40 mg tablet 60 mg PO BID Fluid 07/18/19 04/30/24 History
retention/Swelling
melatonin 5 mg tablet 5 mg PO HS Sleep 07/18/19 04/30/24 History
potassium chloride 20 mEq 20 meq PO DAILY Supplement 07/18/19 04/30/24 History
tablet,extended
release(part/cryst) (Klor-Con M)
pantoprazole 40 mg tablet,delayed 40 mg PO DAILY #30 tabs 10/11/19 04/30/24 Rx
release
apixaban 5 mg tablet (Eliquis) 5 mg PO BID Blood clot 04/02/20 04/30/24 Rx
prevention/tx ##0
guaifenesin 600 mg tablet, 1,200 mg PO BID Cough 11/17/22 04/30/24 History
extended release 12 hr (Mucus
Relief ER)
polyethylene glycol 3350 17 gram 17 g PO DAILYPRN PRN constipation 11/17/22 04/30/24 History
oral powder packet (Miralax)
psyllium 1 packet PO DAILY Constipation 11/17/22 04/30/24 History
diltiazem HCl 120 mg 120 mg PO DAILY Heart 12/01/22 04/30/24 History
capsule,extended release 24 hr disease/condition
budesonide 0.5 mg/2 mL suspension 0.5 mg inhalation R BID 01/27/23 04/30/24 History
for nebulization Lung/Breathing Issues
cholecalciferol (vitamin D3) 50 50 mcg PO DAILY Supplement 04/30/24 04/30/24 History
mcg (2,000 unit) tablet (Vitamin
D3)
ipratropium 0.5 mg-albuterol 3 mg 3 ml inhalation R TID 04/30/24 04/30/24 History
(2.5 mg base)/3 mL nebulization Lung/Breathing Issues
soln
triamcinolone acetonide 0.1 % 1 applic topical DAILYPRN PRN back 04/30/24 04/30/24 History
topical cream
Review of Systems
-
History Source: Patient
All other systems: Negative unless noted
Respiratory: Trouble Breathing
Physical Exam
Vital Signs
Temp Pulse Resp BP Pulse Ox
97.5 F 88 20 133/68 94
05/05/24 07:00 05/05/24 08:08 05/05/24 07:45 05/05/24 08:08 05/05/24 07:45
Physical examination:
General: No acute distress, AAOX3
Neck: Negative JVD
Heart: Regular, Negative S3 positive S1/S2, Negative S4, No murmur
Lungs: CTA b/l, negative wheezes/rales/rhonchi
Abd: Positive BS, NT/ND, neg rebound/rigidity/guarding
Ext: Negative cyanosis/clubbing/edema
Neuro: nonfocal
Lab Results
Troponin I Cancelled 05/01/24 18:01
Fsz-X-[id number] Pept 6100 pg/ml 05/04/24 05:23
Impression / Plan
-
.
Family Physician:� VENTURA Norton
Hazardous Materials Handler: Dr. Celeste Hutchins
Impression:
Presented April 30 2024 with diarrhea, PNA sepsis
Multifactorial dyspnea secondary to acute pneumonia, COPD, chronic bronchiectasis, chronic HFpEF
Abnormal troponin, peaked at 0.1 nonischemic myocardial injury
Acute on chronic heart failure with preserved EF, elevated proBNP 2770
Coronary Artery Disease�
s/p LAD stent 2011
Chronic HFpEF
Chronic atrial fibrillation on Eliquis
SSS status post pacemaker
Hypertension
Hyperlipidemia
COPD/Bronchiectasis
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
History of prostate cancer
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
COVID-positive - 01/28/2024
Lumbar Laminectomy
History neuropathy
Echo January 2024: EF 50% with paradoxical septal wall motion consist
Echo 06/18/2022: EF 50-55%, mild MR/TR, PAP 37-39 mmHg
Plan:
Multifactorial dyspnea. Agree with pulmonary evaluation and steroid wean.
He appears euvolemic and his weight is lower than it has been previously. Agree with continuing with outpatient dose of Lasix at 60 mg twice daily.
Continue to monitor I's and O's, daily weights and creatinine. Creatinine is stable. The patient feels symptomatically improved.
Chest x-ray reviewed without evidence of volume overload. Monitor proBNP.
Continue medical therapy of non-CT troponin.
Permanent atrial fibrillation with controlled ventricular response with ventricular pacing. Continue Eliquis anticoagulation.
Continue diltiazem.
Heart rate and blood pressure are well-controlled.
Will arrange outpatient cardiac follow-up.
Data Reviewed
-
EKG: Tracing Personally Visualized and interpreted
Radiology: Image Personally Visualized and interpreted and Report Reviewed by me
Labs: Labs Reviewed by me
Old Records: Reviewed
[2024-05-05 11:40] LABS: Blood Urea Nitrogen 24 mg/dl (9-20); Calcium 9.5 mg/dl (8.4-10.2); Carbon Dioxide 24 mmol/L (22-30); Chloride 103 mmol/L (98-107); Estimated Creatinine Clearance 50 ml/min; Glucose 110 mg/dl (70-99); Magnesium 1.6 mg/dl (1.6-2.3); Potassium 4.1 mmol/L (3.5-5.1); Sodium 139 mmol/L (135-145); eGFR > 60.00
[2024-05-05 12:50] LABS: Hematocrit 33.7 % (39.0-52.0); Hemoglobin 12.1 g/dL (13.0-18.0)
[2024-05-05] MEDS: MAGNESIUM SULFATE 50 IV (14:05)
[2024-05-05 15:00] VITALS: BP 123/53
[2024-05-05] MEDS: ProAIR HFA INHALER 2 PUFF INH (15:49)
[2024-05-05] MEDS: MIRALAX 17 GRAMS PO (16:15)
[2024-05-05] MEDS: METAMUCIL, KONSYL 1 PACKET PO (16:35)
[2024-05-05] MEDS: MELATONIN 5 MG PO (21:45)
[2024-05-05] MEDS: FLOMAX 0.4 MG PO (21:46)
[2024-05-05] MEDS: LIPITOR 20 MG PO (21:46)
[2024-05-05 23:08] VITALS: BP 124/62
[2024-05-06] MEDS: ZOSYN 50 IV ×2 (02:16→08:12)
[2024-05-06 06:00] VITALS: BMI 23.9
[2024-05-06 07:00] VITALS: BP 131/68
[2024-05-06] MEDS: DUONEB 3 ML INH ×3 (08:01→15:16)
[2024-05-06] MEDS: PULMICORT 0.5 MG INH (08:02)
[2024-05-06] MEDS: ProAIR HFA INHALER 1 PUFF INH (08:02)
[2024-05-06] MEDS: CARDIZEM CD 120 MG PO (08:11)
[2024-05-06] MEDS: ELIQUIS 5 MG PO (08:11)
[2024-05-06] MEDS: LASIX 60 MG PO ×2 (08:11→14:59)
[2024-05-06] MEDS: KCL 20 MEQ PO (08:11)
[2024-05-06] MEDS: MUCINEX 1200 MG PO (08:12)
[2024-05-06] MEDS: PROTONIX 40 MG PO (08:12)
[2024-05-06] MEDS: METAMUCIL, KONSYL 1 PACKET PO (08:12)
[2024-05-06] MEDS: DELTASONE 40 MG PO (08:12)
[2024-05-06] MEDS: VITAMIN D3 (cholecalciferol) 50 MCG PO (08:12)
[2024-05-06] MEDS: VIBRAMYCIN 100 MG PO (08:12)
--- NOTE | 2024-05-06 08:41 | W.PN.HOSP.TC ---
Today's Communication/Plan
-
Discharge planning today
Assessment / Plan
Assessment / Plan
Physical exam:
General: Well Developed, Well Nourished and No Apparent Distress
HEENT: Normocephalic, Atraumatic and Moist Mucous Membranes
Respiratory: Clear to auscultation, no Rales or Rhonchi
Cardiac: Regular Rhythm and S1/S2
GI: Soft, Nontender and Nondistended
Musculoskeletal: No Clubbing, No Cyanosis and No Edema
Neuro: Awake, Alert and Oriented
Psych: Calm
A/P:
# Sepsis (fever, tachypnea) secondary to likely bilateral lower lobe pneumonia
Improving
Change IV antibiotics to oral today
Pulmonary consult on patient request--> appreciated input.
Started on steroids
Continue on oral diuretics
Repeated chest x-ray no acute abnormalities
PT OT recommends skilled rehab
Case management for assistance rehab for discharge disposition
# Diarrhea/vomiting since yesterday possible gastroenteritis
Resolved
#Lower urinary tract symptoms
No evidence of UTI
# Nonischemic myocardial injury
-Troponin 0.083
-No chest pain
#Chronic Pseudomonas bronchiectasis
#Chronic HFpEF
-On home doses of Lasix
#Asthma/COPD on 2 L baseline
Continue albuterol, budesonide,
Patient on albuterol handheld twice a day and as needed and takes also nebs 4 times daily--> he states that is the regimen pulmonary has him on.
On steroids per pulmonary
History of alpha-1 antitrypsin deficiency PIMS phenotype
Chronic atrial fibrillation
-Continue diltiazem
-Continue Eliquis
Sick sinus syndrome status post pacemaker
Coronary artery disease status post LAD stent in 2011
-Continue statin
Peripheral vascular disease with bilateral distal small vessel disease
Prostate cancer
-Continue tamsulosin
Essential hypertension
Spondylosis
Hyperlipidemia
Full code
DVT prophylaxis�Eliquis
Cardiac diet
Anticipated Discharge: Today
Subjective/Interval History
-
Date of Service: May 06, 2024
Patient feels back to his baseline. Afebrile. No chest pain
Objective Data
-
Labs:
Laboratory Results
05/06/24
06:00
Sodium Pending
Potassium Pending
Chloride Pending
Carbon Dioxide Pending
BUN Pending
Creatinine Pending
Glucose Pending
Calcium Pending
Vital Signs:
Vital Signs
Temp Pulse Resp BP Pulse Ox
97.6 F 88 16 131/68 95
05/06/24 07:00 05/06/24 08:30 05/06/24 08:30 05/06/24 08:11 05/06/24 08:30
I&O
05/05/24 05/06/24 05/07/24
06:59 06:59 06:59
Intake Total 1500 / 1500 900 / 900
Output Total 2670 / 2670 975 / 975
Balance -1170 / -1170 -75 / -75
--- NOTE | 2024-05-06 09:13 | W.PN.CARDCBS ---
Today's Communication / Plan
-
He remains euvolemic and his weight is lower than it has been previously. He feels his dry wt is between 146-150. He is at his dyr wt.
Continue with outpatient dose of Lasix at 60 mg twice daily.
Creatinine remains stable. The patient feels symptomatically improved.
Chest x-ray reviewed from 05/05 without evidence of volume overload.
Continue medical therapy of non-MT troponin.
Permanent atrial fibrillation with controlled ventricular response with ventricular pacing. Continue Eliquis anticoagulation.
Continue diltiazem.
Heart rate and blood pressure remain well-controlled.
Outpatient cardiac follow-up is already scheduled.
Please recall if needed.
Impression / Plan
-
.
Family Physician:� VENTURA Norton
Pulp Refiner Operator: Dr. Celeste Hutchins
Impression:
Presented April 30 2024 with diarrhea, PNA sepsis
Multifactorial dyspnea secondary to acute pneumonia, COPD, chronic bronchiectasis, chronic HFpEF
Abnormal troponin, peaked at 0.1 nonischemic myocardial injury
Acute on chronic heart failure with preserved EF, elevated proBNP 2770
Coronary Artery Disease�
s/p LAD stent 2011
Chronic HFpEF
Chronic atrial fibrillation on Eliquis
SSS status post pacemaker
Hypertension
Hyperlipidemia
COPD/Bronchiectasis
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
History of prostate cancer
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
COVID-positive - 01/28/2024
Lumbar Laminectomy
History neuropathy
Echo January 2024: EF 50% with paradoxical septal wall motion consist
Echo 06/18/2022: EF 50-55%, mild MR/TR, PAP 37-39 mmHg
Plan:
Multifactorial dyspnea. Agree with pulmonary evaluation and steroid wean.
He remains euvolemic and his weight is lower than it has been previously. He feels his dry wt is between 146-150. He is at his dyr wt.
Continue with outpatient dose of Lasix at 60 mg twice daily.
Creatinine remains stable. The patient feels symptomatically improved.
Chest x-ray reviewed from 05/05 without evidence of volume overload.
Continue medical therapy of non-MT troponin.
Permanent atrial fibrillation with controlled ventricular response with ventricular pacing. Continue Eliquis anticoagulation.
Continue diltiazem.
Heart rate and blood pressure remain well-controlled.
Outpatient cardiac follow-up with Dr Hutchins is already scheduled.
Please recall if needed.
Progress Note - Pulp Refiner Operator
Subjective
Date of Service: May 06, 2024
Pt seen and examined. No complaints. No chest pain or shortness of breath.
Objective
Labs:
05/05/24 11:11
Labs
Hgb 12.1 g/dL (13.0-18.0) L D 05/05/24 11:11
Hct 33.7 % (39.0-52.0) L 05/05/24 11:11
Plt Count 172 10^3/uL (130-400) 05/04/24 05:23
Sodium 139 mmol/L (135-145) 05/05/24 11:11
Potassium 4.1 mmol/L (3.5-5.1) 05/05/24 11:11
BUN 24 mg/dl (9-20) H 05/05/24 11:11
Creatinine 0.9 mg/dL (0.7-1.3) 05/05/24 11:11
Glucose 110 mg/dl (70-99) H 05/05/24 11:11
Vital Signs and I&O:
Vital Signs
Temp Pulse Resp BP Pulse Ox
97.6 F 88 16 131/68 95
05/06/24 07:00 05/06/24 08:30 05/06/24 08:30 05/06/24 08:11 05/06/24 08:30
Vital Signs
Temp Pulse Resp BP Pulse Ox
97.6 F 88 16 131/68 95
05/06/24 07:00 05/06/24 08:30 05/06/24 08:30 05/06/24 08:11 05/06/24 08:30
Intake & Output
05/04/24 05/05/24 05/06/24 05/07/24
06:59 06:59 06:59 06:59
Intake Total 1200 / 1200 1500 / 1500 900 / 900
Output Total 3345 / 3345 2670 / 2670 975 / 975
Balance -2145 / -2145 -1170 / -1170 -75 / -75
Physical Exam
Physical Exam
General: No acute distress, AAOX3
Neck: Negative JVD
Heart: Regular, Negative S3 positive S1/S2, Negative S4, No murmur
Lungs: CTA b/l, negative wheezes/rales/rhonchi
Abd: Positive BS, NT/ND, neg rebound/rigidity/guarding
Ext: Negative cyanosis/clubbing/edema
Neuro: nonfocal
--- NOTE | 2024-05-06 09:29 | PTCARENOTE ---
pt aaox3. states no pain and breathing feels better. room air breath sounds diminished course with ex wheezing. oob with walker to BR. am care done. pt sitting in chair eating breakfast.
[2024-05-06 10:25] LABS: Blood Urea Nitrogen 28 mg/dl (9-20); Carbon Dioxide 26 mmol/L (22-30); Chloride 103 mmol/L (98-107); Estimated Creatinine Clearance 50 ml/min; Glucose 109 mg/dl (70-99); Potassium 3.5 mmol/L (3.5-5.1); Sodium 140 mmol/L (135-145); eGFR > 60.00
--- NOTE | 2024-05-06 11:27 | W.PN.PUL3 ---
Today's Communication / Plan
-
Antibiotics to complete 7-day course
Nebulized bronchodilators + budesonide
Prednisone course with slow wean - reduce dose by 10 mg every fourth day until off
Up OOB as tolerated
Skilled rehab upon discharge at [facility]
Encourage incentive spirometer
Acappella + vest
Outpatient follow up with Dr. Tobar
Pt being prepared for DC to [facility]. Pulmonary service will now sign off. Please reconsult if there are any additional questions/concerns, or if patient's respiratory status deteriorates.
Assessment
-
Patient is a 89-year-old male with past medical history of asthma/COPD on 2 L baseline, alpha-1 antitrypsin PIMS phenotype, chronic Pseudomonas colonization, bronchiectasis, chronic atrial fibrillation, sick sinus syndrome status post pacemaker,
coronary artery disease history of LAD stent in 2011, HFpEF, presenting to ER with progressive generalized weakness, was unable to get out of bed, had garbled speech. CXR obtained showing most progressive findings in lateral base on CXR possibly
indicating PNA. He is not hypoxemic, stable on RA. Placed on IV abx. We are consulted for eval.
Impression:
Bilateral CAP - CXR showing basilar infiltrate + retrocardiac opacity
Acute on chronic SOB due to above
COPD exacerbation due to above
Generalized weakness
Hypokalemia � resolved
Conditions present prior to admission:
COPD moderate�severe severity-oxygen dependent-followed by Dr Tobar-last seen 03/2024
Maintained on DuoNebs twice daily as well as budesonide nebulizers twice daily
Asmanex once daily and Mucinex in addition to oxygen and vest therapy
Most recent spirometry from 03/16/2022 shows severe COPD with mild restrictive defect; last full PFT from 06/2019 shows moderate COPD
Asthma.
Bronchiectasis in the RML + lingula - on vest therapy and Acapella
Alpha 1 antitrypsin PiMS phenotype.
Tracheomalacia.
CHF chronic.
Atrial fibrillation.
Former smoker.
Decreased diffusing capacity.
Prostate cancer.
Hypertension.
Spondylosis.
CAD/LAD stent 2011.
Sick sinus syndrome.
Bilateral inguinal hernia repair. Permanent pacemaker-generator change April 2020. Umbilical hernia repair. Tonsillectomy. Lumbar surgery. Right humerus OR internal fixation November 2022
Plan
Currently stable on RA, notes his SOB is at baseline
Suspect respiratory decompensation likely due to PNA, but CXR could indicate fluid/worsening lung disease
Prior imaging reviewed, chronic basilar changes at bases however his retrocardiac opacification has worsened and there is worsening opacification in the right base as well
Recent lumbar CT reviewed, limited lung views but there appears to be reticular changes at the bases
Could obtain dedicated Chest CT as OP
Clinically improved: Afebrile.
Not requiring supplemental oxygen.
Not significantly bronchospastic on exam
Will check procal and proBNP to rule out other causes of CXR --> Procal 0.25+ proBNP 6100 (both from 05/04/2024)
Give 5-7 days of antibiotics
Sputum culture from 05/01/2024 shows NGTD
Suspected COPD exacerbation, daughter feels he does better with prednisone
Currently on 40 mg prednisone (started 05/04) � slow wean with reduction in dose by 10 mg every fourth day until off
Continue home nebulizers-DuoNebs QID and budesonide BID
Mucolytics
Incentive spirometry encouraged
Acapella
Vest therapy-has at home-significant bronchiectasis
Has history of Pseudomonas aeruginosa (perkins�sensitive) from prior sputum culture in January 2023
Continue with Zosyn + Doxy and would treat for at least 7 days with antibiotics
- Zosyn started 04/30; Doxy started 05/01
DVT prophylaxis-on Eliquis
GI prophylaxis-on pantoprazole
Agree with discharge plans for skilled rehab
Outpatient pulmonary follow-up with Dr. Tobar, repeat PFTs
Pt being prepared for [facility] to [facility]. Pulmonary service will now sign off. Thank you for allowing us to be involved in the care of this patient. Please reconsult if there are any additional questions/concerns, or if patient's respiratory status
deteriorates.
Total time spent today was 35 minutes for this encounter. Time includes reviewing laboratory test/imaging results, reviewing pertinent medical records, obtaining and reviewing medical history, performing an appropriate exam, ordering medications,
tests and procedures. Time also includes documentation of this encounter, coordinating patient care and communicating with other healthcare professionals. Total time does not include separately billed tests performed on this date of service.
Diagnostic data:
CXR 04/10/24- Interval increased reticulonodular markings involving the left lower lung, best seen on the lateral view, suspicious for pneumonia.
CXR 01-27-23: portable, no gross infiltrates
Chest x-ray 11/23/2019-redemonstration of bibasilar opacifications compatible with scarring and atelectasis
Chest x-ray-new coarsening of interstitial markings raising concern for multifocal interstitial pneumonia versus early CHF
CT chest 11/12/2015-irregular interstitial disease bilaterally fairly extensive bronchiectasis in the left lower lobe and minimal bronchiectasis right middle lobe, fatty liver
ECHO 01/05/24- Normal left ventricular chamber size. Low normal left ventricular systolic function; estimated ejection fraction is 50% by visual estimate. No gross regional wall motion abnormalities. Abnormal (paradoxical) septal motion consistent
with RV pacemaker. Mild concentric left ventricular hypertrophy. Diastolic function indeterminate. Enlarged right ventricular size. Normal right ventricular systolic function. Pacer wire seen in right ventricle.
Mild mitral regurgitation. Mild aortic regurgitation. Moderate tricuspid regurgitation. Estimated pulmonary artery pressure of 40-45 mmHg. Assuming a right atrial pressure of 8 mmHg.
Compared to prior study dated 06/18/22 which was directly reviewed, there is no significant change
Echocardiogram 06/18/2022-EF 50-55%, mild mitral regurgitation
PFT 06/07/2019-FEV1 1.3-56%, FVC 3-90%, TLC 85%, DLCO 46%
Subjective Data
-
Date of Service:
Date of Service: May 06, 2024
Chief Complaint: Pulmonary Follow Up
Subjective:
Pt seen and evaluated today at bedside. He feels well. Being DC'd today. No events reported from overnight. No CP, VO, abd pain, N/V/f/c. Afebrile overnight.
Review of Systems
General: Other (Negative unless mentioned above)
Objective Data
Data Reviewed
Vital Signs / I&O / Oxygen:
Vital Signs
Temp Pulse Resp BP Pulse Ox
97.6 F 88 16 131/68 95
05/06/24 07:00 05/06/24 08:30 05/06/24 08:30 05/06/24 08:11 05/06/24 08:30
Intake and Output
05/05/24 05/06/24 05/07/24
06:59 06:59 06:59
Intake Total 1500 / 1500 900 / 900
Output Total 2670 / 2670 975 / 975
Balance -1170 / -1170 -75 / -75
SaO2 95
Nasal Cannula flow liters per 2
minute
Physical Exam
General: Respiratory Distress (Negative) and Comfortable
HEENT: Normocephalic and Anicteric
Cardiovascular: S1-S2 and Peripheral Edema (Negative)
Respiratory: Wheeze (Negative), Crackles (Bibasilar), Rhonchi (Bibasilar) and Non-Labored Respirations
GI: Soft, Non Distended, Non Tender and Normal Bowel Sounds
Neurology: Awake, Alert and Tremors (Negative)
Skin: Warm, Dry and Jaundice (Negative)
Labs/Micro/Reports
Lab Data
05/05/24 11:11
05/06/24 09:26
--- NOTE | 2024-05-06 12:26 | CM ---
CM following re: discharge planning.
Reviewed pt's chart, met with pt and spoke to pt's daughter Asha over the phone to update on discharge plan progress.
According to pt is medically stable to be discharged today. Both pt and his daughter are aware, expressed their agreement with discharge. IMM reviewed, placed on chart, pt has a copy.
CM spoke to [facility] nursing supervisor framing mill Hermelinda and she confirmed that pt is accepted for admission today.
Transportation arranged by with orange picking supervisor time 4:00 p.m. [facility] completed and left with .
[facility] nursing report: [phone]
Discharge instructions fax: [phone]
D/C plan: [facility].
[2024-05-06] MEDS: AUGMENTIN 875 MG/125 MG 1 TABLET PO (12:51)
[2024-05-06 14:25] VITALS: BP 128/61; PULSE 60; O2SAT 98
--- NOTE | 2024-05-06 14:56 | W.DCSUMMARY ---
Discharge Summary
Discharge Data
Date of Admission: 04/30/24
Date of Discharge: 05/06/24
-
Pending Results: No
Hospital Course
Patient 89 years old with history of COPD, alpha-1 antitrypsin PIMS phenotype, chronic hypoxic respiratory failure on home oxygen, history of Pseudomonas colonization, bronchiectasis, CAD, hypertension, hyperlipidemia, sick sinus syndrome status
post pacemaker in 2019, chronic atrial fibrillation, presented to the hospital with cough and shortness of breath. Found to have pneumonia and treated with broad-spectrum antibiotic IV Zosyn and doxycycline. Speech therapy did swallow evaluation
and no abnormalities and recommended continue regular diet. Pulmonary consulted and they recommended oral prednisone course as well as continue with antibiotics and also raised concerns for heart failure. His BNP was elevated but his weight was
down from his previous. Cardiology also was consulted and recommended continue his oral diuretics and they did not see any evidence of heart failure exacerbation. Follow-up chest x-ray unremarkable. Sputum culture no growth, Legionella, MRSA, and
strep negative. Otherwise, patient has remained hemodynamically stable, afebrile, and symptomatically much better from respiratory standpoint. PT OT recommended rehab patient accepted skilled rehab. Patient is going to be discharged in stable
condition today.
Discharge duration: 35 minutes
Discharge Plan
-
Patient Disposition: Custodial/SNF
Discharge Diagnosis/Procedures: Sepsis. Pneumonia. Chronic obstructive pulmonary disease exacerbation. Chronic diastolic congestive heart failure.
Diet: Low Cholesterol
Activity: As tolerated
Blood Work: Please PCP to order CBC, BMP within 1 week
Referrals:
Chitra Tobar MD [Active] - in one to two weeks
Barron Acveedo DO [Active] - in two to four weeks
Flakita Pittman NP [Family Provider] - in less than 1 week
Prescriptions:
New
prednisone 10 mg Tablet
See Rx Instructions .ROUTE .COMPLEX Qty: 45 0RF
Rx Instructions:
Take By Mouth:
50 mg daily x3 days, 40 mg daily x3 days,
30 mg daily x3 days, 20 mg daily x3 days,
10 mg daily x3 days
amoxicillin-pot clavulanate 875-125 mg Tablet
1 tab PO Q12 3 Days Qty: 6 0RF
Continued
tamsulosin 0.4 MG capsule
0.4 mg PO HS
furosemide 40 MG tablet
60 mg PO BID
atorvastatin 20 MG tablet
20 mg PO HS
potassium chloride [Klor-Con M20] 20 MEQ tablet,ER particles/crystals
20 meq PO DAILY
albuterol sulfate 1 PUFF HFA aerosol inhaler
2 puff inhalation R QIDPRN PRN (Reason: Lung/breathing issues)
melatonin 5 MG tablet
5 mg PO HS
pantoprazole 40 MG tablet,delayed release (DR/EC)
40 mg PO DAILY Qty: 30 0RF
Eliquis 5 MG tablet
5 mg PO BID Qty: 0 0RF
polyethylene glycol 3350 [Miralax] 17 gram Powder In Packet
17 g PO DAILYPRN PRN (Reason: constipation)
psyllium Packet
1 packet PO DAILY
guaifenesin [Mucus Relief ER] 600 MG tablet extended release 12hr
1,200 mg PO BID
diltiazem HCl 120 mg Capsule,Extended Release 24hr
120 mg PO DAILY
budesonide 0.5 mg/2 mL Suspension For Nebulization
0.5 mg INHALATION R BID
ipratropium-albuterol 0.5 mg-3 mg(2.5 mg base)/3 mL Solution For Nebulization
3 ml INHALATION R TID
cholecalciferol (vitamin D3) [Vitamin D3] 50 mcg (2,000 unit) Tablet
50 mcg PO DAILY
triamcinolone acetonide 0.1 % cream
1 applic TOPICAL DAILYPRN PRN (Reason: back)
Discharge Orders:
Discharge Patient (As Directed); Ordered 05/06/24
Ordered By: Doug Infante
Discharge Date and Time
Print Language: AMERICAN
[2024-05-06 15:00] VITALS: BP 124/59
[2024-05-06] MEDS: MIRALAX 17 GRAMS PO (15:00)
== END 2024-05-06 17:05 | DRG 871 ==
LOC: 3 WEST ACU 21:26
PROVIDERS: Clinical Nurse Specialist Family Health; Hospitalist; ADMITTING PHYSICIAN Hospitalist; ATTENDING PHYSICIAN Internal Medicine; CONSULT PHYSICIAN Internal Medicine; CONSULT PHYSICIAN Nuclear Medicine Nuclear Cardiology; EMERGENCY PHYSICIAN Emergency Medicine; FAMILY PHYSICIAN Internal Medicine
DX: A41.9 Sepsis, unspecified organism (principal); J18.9 Pneumonia, unspecified organism; J44.0 Chronic obstructive pulmonary disease with (acute) lower respiratory infection; J47.0 Bronchiectasis with acute lower respiratory infection; I48.21 Permanent atrial fibrillation; I5A Non-ischemic myocardial injury (non-traumatic); J44.1 Chronic obstructive pulmonary disease with (acute) exacerbation; J96.11 Chronic respiratory failure with hypoxia; I50.32 Chronic diastolic (congestive) heart failure; I49.5 Sick sinus syndrome; I25.10 Atherosclerotic heart disease of native coronary artery without angina pectoris; I11.0 Hypertensive heart disease with heart failure; I73.9 Peripheral vascular disease, unspecified; C61 Malignant neoplasm of prostate; E78.00 Pure hypercholesterolemia, unspecified; E88.01 Alpha-1-antitrypsin deficiency; J39.8 Other specified diseases of upper respiratory tract; K21.9 Gastro-esophageal reflux disease without esophagitis; K44.9 Diaphragmatic hernia without obstruction or gangrene; M47.9 Spondylosis, unspecified; E87.6 Hypokalemia; K52.9 Noninfective gastroenteritis and colitis, unspecified; L89.311 Pressure ulcer of right buttock, stage 1; G62.9 Polyneuropathy, unspecified; M51.36 Other intervertebral disc degeneration, lumbar region; M48.061 Spinal stenosis, lumbar region without neurogenic claudication; Z99.81 Dependence on supplemental oxygen; Z95.5 Presence of coronary angioplasty implant and graft; Z95.0 Presence of cardiac pacemaker; Z88.1 Allergy status to other antibiotic agents; Z87.891 Personal history of nicotine dependence; Z87.01 Personal history of pneumonia (recurrent); Z86.16 Personal history of COVID-19; Z79.01 Long term (current) use of anticoagulants; Z79.899 Other long term (current) drug therapy; Z11.52 Encounter for screening for COVID-19
CPT/HCPCS: 70450; 71046; 74230; 80048; 80053; 81003; 81015; 83605; 83690; 83735; 83880; 84145; 84484; 85014; 85018; 85025; 85652; 86140; 86200; 86430; 87070; 87086; 87205; 87449; 87502; 87811; 87899; 92526; 92610; 92611; 93005; 94640; 94668; 94669; 96361; 96365; 96375; 97116; 97163; 97166; 97530; 97535; 99285

== ENCOUNTER → 2024-05-22 12:42 | Outpatient (REF) | payer MEDICARE, BC, SELFPAY | LOC: RAD 12:42 | PROVIDERS: ATTENDING PHYSICIAN Physician Assistant; FAMILY PHYSICIAN Internal Medicine | DX: M19.90 Unspecified osteoarthritis, unspecified site (principal); M25.641 Stiffness of right hand, not elsewhere classified; M25.642 Stiffness of left hand, not elsewhere classified | CPT/HCPCS: 73130 ==

== ENCOUNTER → 2024-09-14 11:20 | Outpatient (REF) | payer MEDICARE, BC, SELFPAY ==
[2024-09-14 13:42] LABS: % Basophils 0.4 % (0-2); % Eosinophils 1.1 % (0-6); % Immature Granulocytes 0.2 % (0-0.5); % Lymphocytes 29.6 % (20.5-51.1); % Monocytes 8.5 % (1.7-9.3); % Neutrophils 60.2 % (42.2-75.2); Absolute Eosinophils 0.1 10^3/uL (0-0.7); Absolute Lymphocytes 1.6 10^3/uL (1.2-3.4); Absolute Monocytes 0.5 10^3/uL (0.1-0.6); Absolute Neutrophils 3.3 10^3/uL (1.4-6.5); Hemoglobin 12.6 g/dL (13.0-18.0); Mean Corp Hgb Conc. 32.3 g/dL (33.0-37.0); Mean Corpuscular Hgb 31.2 pg (27.0-31.0); Mean Corpuscular Volume 96.5 fL (80.0-94.0); Mean Platelet Volume 8.7 fL (7.4-10.4); Nucleated Red Blood Cells % 0 % (-); Platelet Count 222 10^3/uL (130-400); Red Blood Cell Count 4.04 10^6/uL (4.70-6.10); Red Cell Dist. Width 14.2 % (11.5-14.5); White Blood Cell Count 5.4 10^3/uL (4.8-10.8)
[2024-09-14 14:01] LABS: ALT (SGPT) 30 U/L (0-50); AST (SGOT) 32 U/L (17-59); Albumin 4.4 g/dl (3.5-5.0); Alkaline Phosphatase 67 U/L (38-126); Blood Urea Nitrogen 27 mg/dl (9-20); Carbon Dioxide 32 mmol/L (22-30); Chloride 98 mmol/L (98-107); Glucose 98 mg/dl (70-99); Magnesium 2.3 mg/dl (1.6-2.3); Potassium 4.1 mmol/L (3.5-5.1); Sodium 139 mmol/L (135-145); Total Bilirubin 0.8 mg/dl (0.2-1.3); Total Protein 6.7 g/dl (6.3-8.2); eGFR 57.81
[2024-09-14 14:27] LABS: TSH Reflex To Free T4 2.35 uIU/ml (0.47-4.68)
[2024-09-17 08:04] LABS: Magnesium, RBC's Result 6.4 mg/dL (3.6-7.5)
== END ==
LOC: OLABPV 11:20
PROVIDERS: ATTENDING PHYSICIAN Internal Medicine
DX: G47.62 Sleep related leg cramps (principal); R25.2 Cramp and spasm; D64.9 Anemia, unspecified; Z85.46 Personal history of malignant neoplasm of prostate; J44.9 Chronic obstructive pulmonary disease, unspecified; I27.20 Pulmonary hypertension, unspecified; I48.21 Permanent atrial fibrillation; D68.69 Other thrombophilia; E78.5 Hyperlipidemia, unspecified
CPT/HCPCS: 36415; 80053; 83735; 84443; 85025